=== PATIENT | male | born 1960 | race Caucasian/White ===

== ENCOUNTER 2016-09-05 05:58 | Day surgery (SDC) | payer MEDICARE ==
[~2016-09-05 05:58] MED LIST: DIAZEPAM 5 MG TABLET PO PRN; OXYCODONE-ACETAMINOPHEN 5-325 MG TABLET PO PRN
[2016-09-05] MEDS ORDERED: LIDOCAINE 0.5% INJ-PF (5 MG/ML) 50 ML SDV ONE (06:46)
[2016-09-05] MEDS ORDERED: MIDAZOLAM 2 MG/2 ML INJ ONE (06:46)
[2016-09-05] MEDS ORDERED: FENTANYL CITRATE INJ/PF 100 MCG/2 ML AMPUL ONE (06:47)
[2016-09-05] MEDS ORDERED: HEPARIN SOD (PORCINE) 5,000 UNIT/ML 1 ML SYRINGE ONE (06:47)
[2016-09-05 06:51] LABS: ABSOLUTE BASOPHILS # (AUTO) 0.2 10^3/uL (0.0-0.2); ABSOLUTE EOSINOPHILS # (AUTO) 0.4 10^3/uL (0.0-0.6); ABSOLUTE LYMPHOCYTES (AUTO) 1.6 10^3/uL (0.5-4.7); ABSOLUTE MONOCYTES (AUTO) 1.2 10^3/uL (0.1-1.4); ABSOLUTE NEUT (AUTO) 9.7 10^3/uL (1.7-8.2); BASOPHILS % (AUTO) 1.3 % (0-2); EOSINOPHILS % (AUTO) 3.2 % (0-6); HEMOGLOBIN 12.2 g/dL (13.5-17.0); HGB HCT DIFFERENCE 2.6; LYMPHOCYTES % (AUTO) 12.3 % (13-45); MEAN CORPUSCULAR HEMOGLOBIN 31.3 pg (27.0-33.4); MEAN CORPUSCULAR HGB CONC 35.8 g/dL (32.0-36.0); MEAN CORPUSCULAR VOLUME 88 fl (80-97); MONOCYTES % (AUTO) 8.9 % (3-13); RED BLOOD COUNT 3.89 10^6/uL (4.35-5.55); RED CELL DISTRIBUTION WIDTH 13.3 % (11.5-14.0); SEGMENTED NEUTROPHILS % (AUTO) 74.3 % (42-78); WHITE BLOOD COUNT 13.1 10^3/uL (4.0-10.5)
[2016-09-05 07:13] LABS: BLOOD UREA NITROGEN 48 mg/dL (7-20); CALCIUM 9.3 mg/dL (8.4-10.2); CHLORIDE 98 mmol/L (98-107); CREATININE RESULT 7.73 mg/dL (0.52-1.25); GLUCOSE 97 mg/dL (75-110); POTASSIUM 5.3 mmol/L (3.6-5.0)
[2016-09-05 07:22] LABS: ANION GAP 18 (5-19); CARBON DIOXIDE 28 mmol/L (22-30); SODIUM 144.3 mmol/L (137-145)
--- NOTE | 2016-09-05 08:59 | PDOC H&P ---
General Chief Complaint: The patient presents for improvement on a right arm transposed basilic vein fistula. Access flows of diminished below 500 mils per minute. - Current Medications/Allergies Home Medications: Aspirin [Ecotrin] 81 mg PO DAILY 06/30/14 Clopidogrel Bisulfate [Plavix 75 mg Tablet] 75 mg PO DAILY 06/30/14 Lisinopril 10 mg PO DAILY 06/30/14 Metoprolol Tartrate [Lopressor 25 mg Tablet] 100 mg PO BID 06/30/14 Simvastatin 20 mg PO DAILY 06/30/14 Pantoprazole Sodium 40 mg PO DAILY 03/07/16 Ubidecarenone [Coq-10] 100 mg PO DAILY 03/07/16 Allergies/Adverse Reactions: No Known Allergies Allergy (Verified 03/07/16 07:57) Past Medical History Cardiac Medical History: Reports: Coronary Artery Disease, Myocardial Infarction - 2013, Hypertension - on meds Pulmonary Medical History: Denies: Asthma, Bronchitis, Chronic Obstructive Pulmonary Disease (COPD), Pneumonia Neurological Medical History: Denies: Seizures Renal/ Medical History: Reports: End Stage Renal Disease Musculoskeltal Medical History: Denies: Arthritis Hematology: Denies: Anemia Family History Parental Family History Reviewed: No Children Family History Reviewed: No Sibling(s) Family History Reviewed.: No Social History Smoking Status: Unknown if Ever Smoked Frequency of Alcohol Use: None Hx Recreational Drug Use: No Hx Prescription Drug Abuse: No Physical Exam Vital Signs: Temp Pulse Resp BP Pulse Ox 98.2 F 80 18 136/107 H 98 09/05/16 05:45 09/05/16 05:45 09/05/16 05:45 09/05/16 05:45 09/05/16 05:45 Intake & Output 09/04/16 09/05/16 09/06/16 06:59 06:59 06:59 Weight 85 kg Additional comments: Constitutional: A well-developed well-nourished gentleman. No acute distress. Eyes: Mucous membranes pink and moist, sclerae anicteric, pupils react normally. Respiratory: No shortness of breath or wheezing. Breath sounds are normal and equal. Cardiac: Heart sounds normal, no murmurs, no increased JVP. Peripheral edema. Extremities: Upper extremities shows normal range of movement and pulses. The right arm has a transposed basilic to brachial fistula. Bruit normal. Soft to palpation. Psychiatric: judgment, memory, insight seem normal. Mood is normal, appropriate and pleasant. Impression/Plan Impression: #1 malfunctioning arteriovenous fistula, right basilic to brachial. #2 end-stage renal disease on hemodialysis. #3 prior myocardial infarction. #4 history of stroke. #5 hypertension Plan: The fistula angiogram and possible angioplasty was recommended. The goal is to improve and prolonged use of fistula. The risks, benefits, expected outcome, and alternatives are familiar to the patient.
--- NOTE | 2016-09-05 09:01 | PDOC DISCHARGE SUMMARY ---
Discharge Summary (SDC) - Discharge Final Diagnosis: #1 malfunctioning arteriovenous fistula, right basilic to brachial. #2 end-stage renal disease on hemodialysis. #3 prior myocardial infarction. #4 history of stroke. #5 hypertension Date of Surgery: 09/05/16 Discharge Date: 09/05/16 Condition: Good Forms: Sedation D/C Instructions, Discharge POC-Surgical Service Treatment or Instructions: #1 discharge patient home after achieving ASU criteria. #2 continue medications per medication reconciliation sheet. #3 follow-up in office by appointment in about 1 month, call for appointment. #4 dressing to be left on dialysis. #5 continue scheduled hemodialysis. #6 may shower starting in 48 hours. Important to keep dressings clean and dry Referrals: JABARI JAMES MD [ACTIVE STAFF] - (Follow up as schedule ) Discharge Diet: Other (Comments) - Renal Respiratory Treatments at Home: Deep Breathing/Coughing Discharge Activity: Activity As Tolerated Home Care Assistance: None Needed Report the Following to Your Physician Immediately: Shortness of Breath, Nausea , Fever over 101 Degrees, Unusual Bleeding
--- NOTE | 2016-09-05 09:10 | Operative Report ---
Operative Report DATE OF SURGERY: 09/05/16 PREOPERATIVE DIAGNOSIS: #1 malfunctioning arteriovenous fistula, right basilic to brachial. #2 end-stage renal disease on hemodialysis. #3 prior myocardial infarction. #4 history of stroke. #5 hypertension POSTOPERATIVE DIAGNOSIS: #1 malfunctioning arteriovenous fistula, right basilic to brachial. #2 end-stage renal disease on hemodialysis. #3 prior myocardial infarction. #4 history of stroke. #5 hypertension OPERATION: #1 needle access into fistula under ultrasound guidance real-time. # 2 angioplasty arteriovenous. #3 angiogram and interpretation. SURGEON: JABARI DODD FREIGHT RATE SPECIALIST: none ANESTHESIA: Moderate Sedation TISSUE REMOVED OR ALTERED: Not applicable. COMPLICATIONS: None ESTIMATED BLOOD LOSS: 2 mL. INTRAOPERATIVE FINDINGS: Of a well-founded right arm transposed basilic vein fistula. Somewhat soft to palpation which is concordant with the referral finding of diminished access flows. After angioplasty much improved fistula to palpation. Angiographic findings of a long segment of stenoses about 6 cm long and representing 90% of stenosis compared to the adjacent lumen. Dilated initial fistula after then anastomosis and another dilated segment in the stenotic area. These suggest the effect of the cephalad stenoses. Unable to access the artery even after diligent efforts using a torque device,kumpe catheter and various maneuvers. The hyper pulsatile area immediately after the anastomosis suggestive the inflow itself is satisfactory. After angioplasty the stenosis was mostly resolved with a residual 5-10% stenosis. One very short area of stenosis is perhaps a residual 20%. This was very resistant to angioplasty. PROCEDURE: PROCEDURE: After verifying the procedure and having obtained informed consent, the patient's right arm and forearm were prepared with Chlorhexidine and draped out with sterile linen. Local anesthesia infiltrated. Percutaneous access into the fistula ,[retrograde], obtained about [20 cm] from the arteriovenous anastomosis using a micro puncture needle followed by micro puncture wire and then a micro puncture catheter. This was done on ultrasound guidance using real-time access into the vein. Ultrasound was also used to size the vein up to 13 mm in the body. Angiogram demonstrated the aforementioned findings. Angioplasty was elected. A 0.035 [place] wire was inserted, a 6 Citizen [place] short introducer was placed,a Kumpe catheter was now used to gently traverse the area of stenosis and initial angiogram done. And this was followed by a [4] angioplasty balloon . Angioplasty was now done over the stenotic segments. This was done using hand injection with the 3 most syringe estimated up to 16 amita sustained for 2minutes. The short area of residual stenosis was noted as well as some improvement. A 6 mm angioplasty balloon was now substituted and again angioplasty done on the hand injection. An insufflator was now attached to the balloon and targeted insufflation done up to 16 amita for a minute. This resulted in almost elimination of the very tight area of stenosis. Angiogram demonstrated successful outcome. Completion angiogram demonstrated [satisfactory result]. The instrumentation was now withdrawn over hand-held pressure for 10 minutes. Dressings applied, procedure concluded. Exposure time: 3.5 minutes Radiation: 5 sarah per centimeter squared Contrast: 25 mL of Isovue-M 300 low osmolality. DICTATING PHYSICIAN: JABARI JAMES M.D. cc: JABARI JAMES M.D. ([id number]) >>
[2016-09-05 10:58] VITALS: BP 132/81
== END 2016-09-05 10:45 | disposition home or self-care (01) ==
LOC: CCL 05:58
PROVIDERS: ATTEND Surgery
PROC: 05793DZ Dilation of Right Brachial Vein with Intraluminal Device, Percutaneous Approach (ICD-10-PCS; principal; 2016-09-05)
DX: T82.858A Stenosis of other vascular prosthetic devices, implants and grafts, initial encounter (principal); Y83.2 Surgical operation with anastomosis, bypass or graft as the cause of abnormal reaction of the patient, or of later complication, without mention of misadventure at the time of the procedure; I12.0 Hypertensive chronic kidney disease with stage 5 chronic kidney disease or end stage renal disease; N18.6 End stage renal disease; I25.10 Atherosclerotic heart disease of native coronary artery without angina pectoris; Z86.73 Personal history of transient ischemic attack (TIA), and cerebral infarction without residual deficits; I25.2 Old myocardial infarction; Z79.82 Long term (current) use of aspirin; Z79.899 Other long term (current) drug therapy
CPT/HCPCS: 36415; 85025; 80048; 36902; 76937; C1725; Q9967; J1644 ×2; A9270 ×2; J3490; J2250; J3010

== ENCOUNTER 2016-11-28 10:51 | Day surgery (SDC) | payer MEDICARE ==
[2016-11-27 12:46] LABS: HEMOGLOBIN 11.8 g/dL (13.5-17.0); HGB HCT DIFFERENCE 1.4; MEAN CORPUSCULAR HEMOGLOBIN 30.8 pg (27.0-33.4); MEAN CORPUSCULAR HGB CONC 34.6 g/dL (32.0-36.0); MEAN CORPUSCULAR VOLUME 89 fl (80-97); RED BLOOD COUNT 3.83 10^6/uL (4.35-5.55); RED CELL DISTRIBUTION WIDTH 13.2 % (11.5-14.0); WHITE BLOOD COUNT 10.9 10^3/uL (4.0-10.5)
[2016-11-27 13:23] LABS: ANION GAP 15 (5-19); BLOOD UREA NITROGEN 17 mg/dL (7-20); CALCIUM 9.1 mg/dL (8.4-10.2); CARBON DIOXIDE 30 mmol/L (22-30); CHLORIDE 96 mmol/L (98-107); CREATININE RESULT 4.21 mg/dL (0.52-1.25); GLUCOSE 82 mg/dL (75-110); POTASSIUM 3.8 mmol/L (3.6-5.0); SODIUM 140.6 mmol/L (137-145)
--- NOTE | 2016-11-28 12:42 | PDOC H&P ---
General Chief Complaint: This patient was referred across from hemodialysis because of inadequate flow. He is here for angiogram and possible angioplasty. - Current Medications/Allergies Home Medications: Aspirin [Ecotrin] 81 mg PO DAILY 06/30/14 Clopidogrel Bisulfate [Plavix 75 mg Tablet] 75 mg PO DAILY 06/30/14 Lisinopril 10 mg PO DAILY 06/30/14 Metoprolol Tartrate [Lopressor 25 mg Tablet] 100 mg PO BID 06/30/14 Simvastatin 20 mg PO DAILY 06/30/14 Pantoprazole Sodium 40 mg PO DAILY 03/07/16 Ubidecarenone [Coq-10] 100 mg PO DAILY 03/07/16 Allergies/Adverse Reactions: No Known Allergies Allergy (Verified 03/07/16 07:57) Past Medical History Cardiac Medical History: Reports: Coronary Artery Disease, Myocardial Infarction - 2013, Hypertension - on meds Pulmonary Medical History: Denies: Asthma, Bronchitis, Chronic Obstructive Pulmonary Disease (COPD), Pneumonia Neurological Medical History: Denies: Seizures Renal/ Medical History: Reports: End Stage Renal Disease Musculoskeltal Medical History: Denies: Arthritis Hematology: Denies: Anemia Family History Parental Family History Reviewed: No Children Family History Reviewed: No Sibling(s) Family History Reviewed.: No Social History Smoking Status: Never Smoker Frequency of Alcohol Use: None Hx Recreational Drug Use: No Hx Prescription Drug Abuse: No Physical Exam Vital Signs: Temp Pulse Resp BP Pulse Ox 97.5 F 76 20 138/78 H 100 11/28/16 11:53 11/28/16 11:53 11/28/16 11:53 11/28/16 11:53 11/28/16 11:53 Intake & Output 11/27/16 11/28/16 11/29/16 06:59 06:59 06:59 Weight 81.647 kg 85.1 kg Additional comments: Constitutional: Well-developed well-nourished gentleman. No apparent acute distress. Eyes: Mucous membranes pink and moist, pupils equal and reactive to light. Conjunctiva normal. Cornea normal. ENT: Hearing grossly normal. External pinna normal to inspection. Teeth intact. Tongue normal to inspection. Cardiac: Heart sounds 1 and 2 normal, no murmurs. Respiratory breath sounds are present bilaterally, normal. Normal respiratory effort. Skin: Normal to inspection. No ulcers, normal turgor. Psychiatric: Judgment, memory, insight seem normal. Mood is pleasant and appropriate. Extremities: Upper extremities show normal range of movement. Pulses present noted to the radial arteries. Capillary refill normal. No cyanosis noted. No muscle wasting noted. Right arm transposed basilic vein fistula is somewhat softer than normal, bruit normal. Lo Impression/Plan Impression: #1 malfunctioning AV fistula, right transposed basilic vein. 2. End-stage renal disease on hemodialysis. 3. Coronary artery disease. 4. Hypertension. Plan: In this patient with a malfunctioning AV fistula, continued adequate function is necessary. Angiogram and angioplasty are recommended. The patient accepts these recommendations. He understands the risks, benefits, expected outcome and alternatives. He wishes to proceed.
[2016-11-28] MEDS ORDERED: MIDAZOLAM 2 MG/2 ML INJ ONE (12:43)
[2016-11-28] MEDS ORDERED: HEPARIN SOD (PORCINE) 5,000 UNIT/ML 1 ML SYRINGE ONE (12:43)
[2016-11-28] MEDS ORDERED: FENTANYL CITRATE INJ/PF 100 MCG/2 ML AMPUL ONE (12:43)
[2016-11-28] MEDS ORDERED: LIDOCAINE 0.5% INJ-PF (5 MG/ML) 50 ML SDV ONE (12:43)
[2016-11-28] MEDS ORDERED: OXYCODONE-ACETAMINOPHEN 5-325 MG TABLET ONE (12:50)
[2016-11-28] MEDS ORDERED: DIAZEPAM 5 MG TABLET ONE (12:50)
--- NOTE | 2016-11-28 13:43 | PDOC DISCHARGE SUMMARY ---
Discharge Summary (SDC) - Discharge Final Diagnosis: #1 malfunctioning AV fistula, right transposed basilic vein. 2. End-stage renal disease on hemodialysis. 3. Coronary artery disease. 4. Hypertension. Date of Surgery: 11/28/16 Discharge Date: 11/28/16 Condition: Fair Treatment or Instructions: Discharge home [after recovery per ASU criteria]. Diet , [renal],as tolerated, when fully awake advance as tolerated. Activities within moderation encouraged. Follow up in my office by appointment in about [1 month]. Call for appointment. Leave wounds [covered], [keep clean and dry, until hemodialysis]. May shower [in 48 hrs], [try to keep operated area as dry as possible]. Discharge Diet: Other (Comments) - Renal Respiratory Treatments at Home: Deep Breathing/Coughing Discharge Activity: Activity As Tolerated Report the Following to Your Physician Immediately: Shortness of Breath, Unusual Bleeding
--- NOTE | 2016-11-28 13:59 | Operative Report ---
Operative Report DATE OF SURGERY: 11/28/16 PREOPERATIVE DIAGNOSIS: #1 malfunctioning AV fistula, right transposed basilic vein. 2. End-stage renal disease on hemodialysis. 3. Coronary artery disease. 4. Hypertension. POSTOPERATIVE DIAGNOSIS: #1 malfunctioning AV fistula, right transposed basilic vein. 2. End-stage renal disease on hemodialysis. Post angioplasty. 3. Coronary artery disease. 4. Hypertension. OPERATION: 1. Needle introduction of the fistula. 2. Angioplasty. 3. Angiogram and interpretation. SURGEON: JABARI DODD TECHNOLOGY SUPPORT ANALYST: None ANESTHESIA: Moderate Sedation TISSUE REMOVED OR ALTERED: Not applicable. COMPLICATIONS: None ESTIMATED BLOOD LOSS: 2 mL. INTRAOPERATIVE FINDINGS: Of a well founded right arm transposed basilic vein fistula. There was a short segment of stenosis about 2 mm in the longest section of about 4 cm. These were about 2 cm away from the arteriovenous anastomosis. 90% stenosis compared to the adjacent lumen. Much improved with a residual 5-10% stenosis. It may be worthwhile intervening earlier rather than later and going up to 6 mm balloon. . The fistula was quite soft initially and became appropriately for her after angioplasty initiating improved inflow. PROCEDURE: PROCEDURE: After verifying the procedure and having obtained informed consent, the patient's right arm and forearm were prepared with Chlorhexidine and draped out with sterile linen. Local anesthesia infiltrated. Percutaneous access into the fistula ,[retrograde], obtained about [20 cm] from the arteriovenous anastomosis using a micro puncture needle followed by micro puncture wire and then a micro puncture catheter. Angiogram demonstrated the aforementioned findings. Angioplasty was elected. A 0.035 [place] wire was inserted, and over this, a 6 [place] short introducer was placed, this was followed by a 5 mm angioplasty balloon . Angioplasty was now done over the perianastomotic segment. As noted in findings. This was done very carefully and in the up to 10 amita sustained for 1 minute, using a 3 mils syringe.. This was repeated. Completion angiogram demonstrated [satisfactory result]. The instrumentation was now withdrawn over hand injection. Dressings applied, procedure concluded. Exposure time: 2.1 minutes Radiation: 1.9 mcg per centimeter squared Contrast: 25 mL of Isovue-M 300 low osmolality. DICTATING PHYSICIAN: JABARI JAMES M.D. cc: JABARI JAMES M.D. ([id number]) >>
[2016-11-28 14:55] VITALS: BP 126/68
--- NOTE | 2016-11-28 16:22 | RADIOLOGY REPORT (SQ) ---
EXAM DESCRIPTION: FISTULAGRAM W/PLASTY COMPLETED DATE/TIME: 11/28/2016 2:20 pm REASON FOR STUDY: T82.858A T82.858A STENOSIS OF OTHER VASCULAR PROSTH DEV/GRFT, INIT N18.2 CHRONIC KIDNEY DISEASE, STAGE 2 (MILD) COMPARISON: 09/05/2016 FLUOROSCOPY TIME: 2.1 minutes Multiple cine fluoro images saved to PACS. TECHNIQUE: Intra-operative images acquired during surgical procedure to evaluate progress. NUMBER OF IMAGES: Cine fluoroscopic images. LIMITATIONS: None. FINDINGS: Intra procedural imaging and fluoro during left upper extremity dialysis access evaluation and plasty by Dr. Singh IMPRESSION: Intra procedural imaging and fluoro COMMENT: Quality ID [id number]: Final reports for procedures using fluoroscopy that document radiation exp osure indices, or exposure time and number of fluorographic images (if radiation exposure indices are not available) Please consult full operative report of the attending physician for description of the procedure. TECHNICAL DOCUMENTATION: JOB ID: [id number] [employer]- All Rights Reserved
== END 2016-11-28 14:35 | disposition home or self-care (01) ==
LOC: SC 10:51
PROVIDERS: ATTEND Surgery
PROC: 057B3DZ Dilation of Right Basilic Vein with Intraluminal Device, Percutaneous Approach (ICD-10-PCS; principal; 2016-11-28)
DX: T82.858A Stenosis of other vascular prosthetic devices, implants and grafts, initial encounter (principal); Y83.2 Surgical operation with anastomosis, bypass or graft as the cause of abnormal reaction of the patient, or of later complication, without mention of misadventure at the time of the procedure; I12.0 Hypertensive chronic kidney disease with stage 5 chronic kidney disease or end stage renal disease; N18.6 End stage renal disease; Z99.2 Dependence on renal dialysis; Z79.899 Other long term (current) drug therapy; Z79.82 Long term (current) use of aspirin; I25.2 Old myocardial infarction; Z86.73 Personal history of transient ischemic attack (TIA), and cerebral infarction without residual deficits
CPT/HCPCS: 36415; 85027; 80048; 36902; C1725; C1769; J2250; J1644 ×2; A9270 ×2; J3010; J3490

== ENCOUNTER → 2017-02-27 | Outpatient (CLI) | payer MEDICAID, MEDICARE ==
--- NOTE | 2017-02-27 16:13 | XCELERA REPORT ---
[address] [address] Lower Extremity Venous Evaluation Name: IKE AZAR Age: 56 yrs Gender: Male : 1960 Patient Status: Outpatient Patient Location: Study Date: 02/27/2017 02:45 PM Procedure: Color flow and duplex imaging bilaterally of the veins of the lower extremities as well as the Common Femoral veins. Reason For Study: PAIN Ordering Physician: ALTAGRACIA HERNANDEZ Performed By: Adalberto Bob Right Sided Venous Evaluation Normal vessel filling wall to wall, compression and augmentation as well as Colour flow down to the infrageniculate veins. Left Sided Venous Evaluation Normal vessel filling wall to wall, compression and augmentation as well as Colour flow down to the infrageniculate veins. Interpretation Summary No duplex evidence of DVT or obstruction in the bilateral lower extremities. : ALTAGRACIA HERNANDEZ > Brendan Singh
--- NOTE | 2017-02-27 16:28 | XCELERA REPORT ---
[address] [address] Lower Extremity Arterial Evaluation Name: IKE AZAR Age: 56 yrs Gender: Male : 1960 Patient Status: Outpatient Patient Location: Study Date: 02/27/2017 02:22 PM Procedure: A color flow and duplex scan of the lower extremity arteries was performed bilaterally with velocity and waveform anaylsis. Ankle brachial indicies performed. Reason For Study: PAIN Ordering Physician: ALTAGRACIA HERNANDEZ Performed By: Adalberto Bob Measurements and Calculations Right Left ELECTROPHYSIOLOGY TECHNOLOGIST PSV 122.6 127.3 cm/sec Prox PFA PSV -106.9 -99.0 cm/sec Dist SFA PSV -123.8 -103.1 cm/sec Dist Pop A PSV 74.6 84.4 cm/sec Prox MELISSA PSV 17.7 cm/sec Dist MELISSA PSV 28.2 66.2 cm/sec Dist TEACHING FELLOW PSV 65.9 86.0 cm/sec David Pedis PSV 15.3 32.9 cm/sec Right Side Arterial Evaluation Normal velocity and triphasic waveforms noted from the Common Femoral artery to the Posterior Tibial artery. Occluded Anterior Tibial artery with monophasic reconstitution. Ankle Brachial index was not obtainable due to non compressibility. Left Side Arterial Evaluation Normal velocity and triphasic waveforms noted from the Common Femoral artery to the Posterior Tibial artery. Biphasic in the Dorsalis Pedis artery. Ankle Brachial index was not obtainable due to non compressibility. Interpretation Summary Mild hemodynamically significant lesions in the bilateral lower extremities, on duplex imaging, at rest. : ALTAGRACIA HERNANDEZ > Brendan Singh
== END ==
LOC: SP 13:56
PROVIDERS: ATTEND Student in an Organized Health Care Education/Training Program
DX: I73.9 Peripheral vascular disease, unspecified (principal); M79.604 Pain in right leg; M79.605 Pain in left leg; N18.6 End stage renal disease; Z86.73 Personal history of transient ischemic attack (TIA), and cerebral infarction without residual deficits
CPT/HCPCS: 93925; 93970

== ENCOUNTER 2017-03-27 10:09 | Day surgery (SDC) | payer MEDICARE, MEDICAID ==
[2017-03-27 10:58] LABS: ABSOLUTE BASOPHILS # (AUTO) 0.1 10^3/uL (0.0-0.2); ABSOLUTE EOSINOPHILS # (AUTO) 0.3 10^3/uL (0.0-0.6); ABSOLUTE LYMPHOCYTES (AUTO) 1.1 10^3/uL (0.5-4.7); ABSOLUTE MONOCYTES (AUTO) 0.8 10^3/uL (0.1-1.4); ABSOLUTE NEUT (AUTO) 6.9 10^3/uL (1.7-8.2); BASOPHILS % (AUTO) 1.3 % (0-2); EOSINOPHILS % (AUTO) 2.9 % (0-6); HEMATOCRIT 35.7 % (37.9-51.0); HEMOGLOBIN 12.4 g/dL (13.5-17.0); HGB HCT DIFFERENCE 1.5; LYMPHOCYTES % (AUTO) 11.6 % (13-45); MEAN CORPUSCULAR HEMOGLOBIN 30.6 pg (27.0-33.4); MEAN CORPUSCULAR HGB CONC 34.7 g/dL (32.0-36.0); MEAN CORPUSCULAR VOLUME 88 fl (80-97); MONOCYTES % (AUTO) 9.1 % (3-13); RED BLOOD COUNT 4.04 10^6/uL (4.35-5.55); RED CELL DISTRIBUTION WIDTH 13.7 % (11.5-14.0); SEGMENTED NEUTROPHILS % (AUTO) 75.1 % (42-78); WHITE BLOOD COUNT 9.1 10^3/uL (4.0-10.5)
[2017-03-27] MEDS ORDERED: FENTANYL CITRATE INJ/PF 100 MCG/2 ML AMPUL ONE (11:30)
[2017-03-27] MEDS ORDERED: HEPARIN SOD (PORCINE) 5,000 UNIT/ML 1 ML SYRINGE ONE ×2 (11:30→11:36)
[2017-03-27] MEDS ORDERED: MIDAZOLAM 2 MG/2 ML INJ ONE (11:30)
[2017-03-27] MEDS ORDERED: LIDOCAINE 0.5% INJ-PF (5 MG/ML) 50 ML SDV ONE (11:36)
[2017-03-27 11:42] LABS: ANION GAP 18 (5-19); BLOOD UREA NITROGEN 53 mg/dL (7-20); CALCIUM 8.9 mg/dL (8.4-10.2); CARBON DIOXIDE 24 mmol/L (22-30); CHLORIDE 105 mmol/L (98-107); CREATININE RESULT 9.77 mg/dL (0.52-1.25); GLUCOSE 87 mg/dL (75-110); POTASSIUM 5.2 mmol/L (3.6-5.0); SODIUM 146.6 mmol/L (137-145)
--- NOTE | 2017-03-27 13:44 | PDOC DISCHARGE SUMMARY ---
Discharge Summary (SDC) - Discharge Final Diagnosis: #1 right arm AV fistula transposed basilic, malfunction. 2. End-stage renal disease on hemodialysis. 3. Coronary artery disease. 4. Hypertension. Date of Surgery: 03/27/17 Discharge Date: 03/27/17 Condition: Good Forms: Sedation D/C Instructions, Discharge POC-Surgical Service Treatment or Instructions: Discharge home [after recovery per ASU criteria]. Diet , [renal],as tolerated, when fully awake advance as tolerated. Activities within moderation encouraged. Follow up in my office by appointment in about [1 month]. Call for appointment. Leave wounds [covered], [keep clean and dry, until hemodialysis. Hold of on school/work [until evaluation in office]. May shower [in 48 hrs], [try to keep operated area as dry as possible]. Referrals: JABARI JAMES MD [ACTIVE STAFF] - 04/12/17 10:15 am Discharge Diet: Other (Comments) - Renal Respiratory Treatments at Home: Deep Breathing/Coughing Discharge Activity: Activity As Tolerated, No Lifting/Push/Pulling Home Care Assistance: None Needed Report the Following to Your Physician Immediately: Shortness of Breath, Nausea , Vomiting, Increase in Pain, Fever over 101 Degrees, Unusual Bleeding, Redness , Swelling, Warmth
--- NOTE | 2017-03-27 13:52 | Operative Report ---
Operative Report DATE OF SURGERY: 03/27/17 PREOPERATIVE DIAGNOSIS: #1 right arm AV fistula transposed basilic, malfunction. 2. End-stage renal disease on hemodialysis. 3. Coronary artery disease. 4. Hypertension. POSTOPERATIVE DIAGNOSIS: #1 right arm AV fistula transposed basilic, malfunction. Post angioplasty. 2. End-stage renal disease on hemodialysis. 3. Coronary artery disease. 4. Hypertension. OPERATION: 1. Ultrasound evaluation and real-time ultrasound access into right arm AV fistula. 2. Angioplasty. 3. Angioplasty with drug eluting balloon. 4. Angiogram and interpretation. SURGEON: JABARI DODD CONSTRUCTION EQUIPMENT OVERHAULER: None ANESTHESIA: Moderate Sedation TISSUE REMOVED OR ALTERED: Not applicable COMPLICATIONS: None ESTIMATED BLOOD LOSS: 5 mL. INTRAOPERATIVE FINDINGS: Well established right arm transposed basilic vein fistula. Very faint bruit and only at the arterial end. Hyper pulsatile segment in the first 2-3 cm distal to that the fistula barely appreciable. Ultrasound of considerable benefit in getting safe access into the fistula. The culprit lesion is from about 3-9 cm with one sharp area at about 4 cm of about 90% stenosis with resolution and possibly about 5-10% residual stenosis. Using a 6 mm angioplasty balloon. Almost no flow through the fistula which was almost entirely obstructed by the Kumpe catheter initially. After angioplasty excellent flow through the fistula. Copy documentation done. The patient given a copy of the salient pictures as well as information about the drug- eluting balloon. The hope is to hold off on this recurrent area of stenosis for 6 more months. PROCEDURE: PROCEDURE: After verifying the procedure and having obtained informed consent, the patient's right arm was prepared with Chlorhexidine and draped out with sterile linen. Local anesthesia infiltrated. Percutaneous access into the fistula ,[ antegrade], obtained about [20 cm] from the arteriovenous anastomosis using a micro puncture needle. This was done on ultrasound guidance with the probe longitudinally, directly over the cephalic fistula. This was of great efficacy and getting C's access into the fistula which is relatively soft at this point. Followed by micro puncture wire and then a micro puncture catheter. 6 [place] introducer was now placed and then a Kumpe catheter which was manipulated down to the area of the brachial artery. Angiogram was done with the findings as above. Based on this a 6 mm angioplasty balloon, [place] was now placed at the area of dilatation and inflation done using hand injection, 3 mils syringe. This was serially done until the area of stenosis was completely covered. It was inflated up to 2 minutes each. Angiogram demonstrated satisfactory dilatation and therefore 6 mm, 60 mm long, drug-eluting balloon was placed over the the distal portion of the stenosis. It was inflated up to 11 amita and sustained for 3 minutes. This was 60 mm long. A second 6 mm diameter, 40 mm drug-eluting balloon was now placed on the cephalad area of stenosis and inflation done up to 11 amita using an insufflator. The balloon was now let down and a completion angiogram done and the instrumentation removed over hand-held pressure for 10 minutes. The instrumentation was now withdrawn over and pressure for 10 minutes. Dressings applied, procedure concluded. Exposure time: 3.9 minutes Radiation: 8.53 mcg/cm Contrast: 25 mL of Isovue-300, low osmolality DICTATING PHYSICIAN: JABARI JAMES M.D. cc: JABARI JAMES M.D. ([id number]) >>
[2017-03-27 14:21] VITALS: BP 119/75
== END 2017-03-27 14:20 | disposition home or self-care (01) ==
LOC: CCL 10:09
PROVIDERS: ATTEND Surgery
PROC: 05783DZ Dilation of Left Axillary Vein with Intraluminal Device, Percutaneous Approach (ICD-10-PCS; principal; 2017-03-27)
DX: T82.858A Stenosis of other vascular prosthetic devices, implants and grafts, initial encounter (principal); Y83.2 Surgical operation with anastomosis, bypass or graft as the cause of abnormal reaction of the patient, or of later complication, without mention of misadventure at the time of the procedure; I12.0 Hypertensive chronic kidney disease with stage 5 chronic kidney disease or end stage renal disease; N18.6 End stage renal disease; Z99.2 Dependence on renal dialysis; I25.10 Atherosclerotic heart disease of native coronary artery without angina pectoris; Z79.899 Other long term (current) drug therapy; Z79.82 Long term (current) use of aspirin; I25.2 Old myocardial infarction
CPT/HCPCS: 36415; 85025; 80048; 36902; C1752; C1887; C1894; C1725; C1769; J2250; J1644 ×2; J3010; J3490; C2623; Q9967

== ENCOUNTER → 2017-08-09 | Outpatient (CLI) | payer MEDICAID, MEDICARE ==
--- NOTE | 2017-08-09 17:33 | RADIOLOGY REPORT (SQ) ---
EXAM DESCRIPTION: U/S LTD DUPLEX ART/VIDAL FLOW COMPLETED DATE/TIME: 08/09/2017 5:15 pm REASON FOR STUDY: HYPERTENSIVE CHRONIC KIDNEY DISEASE WITH STAGE 5 CHRONIC KIDNEY DISEASE I12.0 HYP CHR KIDNEY DISEASE W STAGE 5 CHR KIDNEY DISEASE OR COMPARISON: None. TECHNIQUE: Realtime and static grayscale images acquired. Selected color Doppler, velocities and spe ctral images recorded. LIMITATIONS: Unable to obtain renal Doppler on the left side due to anatomy. FINDINGS: RIGHT KIDNEY: RENAL ARTERY VELOCITIES: 1.1 cm/sec. Segmental artery velocity 0.98 cm/sec. RENAL VEIN: Color doppler flow present, patent. VELOCITY RATIO: 2.33. Normal waveforms. KIDNEY: 8.9 cm. Increased cortical echogenicity. Cortical cysts. LEFT KIDNEY: RENAL ARTERY VELOCITIES: Unable to obtain. KIDNEY: 10.1 increased cortical echogenicity. Cortical cysts. OTHER: No other significant finding. IMPRESSION: UNABLE TO ADEQUATELY MEASURE THE RENAL VELOCITIES ON THE LEFT SIDE. NO DOPPLER EVIDENCE OF RENAL ARTERY STENOSIS ON THE RIGHT SIDE. ECHOGENIC KIDNEYS WITH CORTICAL CYSTS. NO HYDRONEPHROS IS. COMMENT: NORMAL RENAL ARTERY/AORTA VELOCITY RATIO IS LESS THAN OR EQUAL TO 3.5. TECHNICAL DOCUMENTATION: JOB ID: [id number] [employer]- All Rights Reserved Reading location - IP/workstation name: [email or web address]
== END ==
LOC: RAD 16:28
PROVIDERS: ATTEND Internal Medicine Nephrology
DX: I12.9 Hypertensive chronic kidney disease with stage 1 through stage 4 chronic kidney disease, or unspecified chronic kidney disease (principal); N18.9 Chronic kidney disease, unspecified; N28.1 Cyst of kidney, acquired
CPT/HCPCS: 93976

== ENCOUNTER 2017-12-25 11:29 | Emergency (ER) | payer MEDICARE, MEDICAID ==
[2017-12-25] MEDS ORDERED: ALBUTEROL SULFATE 0.083% NEB 2.5 MG/3 ML AMPUL NEB ONE (11:53)
[2017-12-25] MEDS ORDERED: CALCIUM GLUCONATE 1000 MG/10 ML INJ IV ONE (11:53)
[2017-12-25] MEDS ORDERED: SODIUM POLYSTYRENE SULFONATE 15 GM/60 ML PO ONE ×2 (11:53→21:30)
--- NOTE | 2017-12-25 12:13 | ER Document Report ---
ED General - General Mode of Arrival: Ambulatory Information source: Patient TRAVEL OUTSIDE OF THE [place] IN LAST 30 DAYS: No <PATRIA BAEZA - Last Filed: 12/25/17 12:31> <BERTA MEJIA - Last Filed: 12/25/17 18:55> - General Stated Complaint: FOLLOW UP FROM ASU Time Seen by Provider: 12/25/17 11:53 Notes: 57-year-old male who presents to the emergency department today with complaints of an elevated potassium (6.7) during outpatient labs. Patient was scheduled to have his right forearm AV fistula cleaned out by vascular surgery today and in labs was found to have the potassium listed above. Patient states he is asymptomatic. Patient does admit to eating bananas. (PATRIA BAEZA) - Related Data Allergies/Adverse Reactions: No Known Allergies Allergy (Verified 03/07/16 07:57) Past Medical History - General Information source: Patient - Social History Smoking Status: Never Smoker Cigarette use (# per day): No Frequency of alcohol use: None Drug Abuse: None Lives with: Family Family History: Reviewed & Not Pertinent - Past Medical History Cardiac Medical History: Reports: Hx Coronary Artery Disease, Hx Heart Attack - 2013, Hx Hypertension - on meds Neurological Medical History: Reports: Hx Cerebrovascular Accident - 2003, NO RESIDUAL Renal/ Medical History: Reports: Hx End Stage Renal Disease Past Surgical History: Reports: Hx Coronary Artery Bypass Graft - x4 2013 - Immunizations Hx Diphtheria, Pertussis, Tetanus Vaccination: Yes Hx Pneumococcal Vaccination: 02/11/14 <PATRIA BAEZA - Last Filed: 12/25/17 12:31> Review of Systems - Review of Systems Constitutional: See HPI, Other - elevated potassium EENT: No symptoms reported Cardiovascular: No symptoms reported Respiratory: No symptoms reported Gastrointestinal: No symptoms reported Genitourinary: No symptoms reported Male Genitourinary: No symptoms reported Musculoskeletal: No symptoms reported Skin: No symptoms reported Hematologic/Lymphatic: No symptoms reported Neurological/Psychological: No symptoms reported -: Yes All other systems reviewed and negative <PATRIA BAEZA - Last Filed: 12/25/17 12:31> Physical Exam <PATRIA BAEZA - Last Filed: 12/25/17 12:31> <BERTA MEJIA - Last Filed: 12/25/17 18:55> - Vital signs Vitals: Resp Pulse Ox 17 100 12/25/17 11:37 12/25/17 11:37 - Notes Notes: Physical Exam: General: Alert, appears well. HEENT: Normocephalic. Atraumatic. PERRL. Extraocular movements intact. Oropharynx clear. Neck: Supple. Non-tender. Respiratory: No respiratory distress. Clear and equal breath sounds bilaterally. Cardiovascular: Regular rate and rhythm. Abdominal: Normal Inspection. Non-tender. No distension. Normal Bowel Sounds. Back: Non-tender. No deformity or step off. Extremities: Moves all four extremities. Upper extremities: AV fistula in right forearm. Normal ROM. Lower extremities: Normal inspection. No edema. Normal ROM. Neurological: Normal cognition. AAOx4. Normal speech. Psychological: Normal affect. Normal Mood. Skin: Warm. Dry. Normal color. (PATRIA BAEZA) Course <PATRIA BAEZA - Last Filed: 12/25/17 12:31> - Laboratory Result Diagrams: 12/25/17 14:10 - EKG Interpretation by Hi EKG shows normal: Sinus rhythm, [employer], Intervals, ST-T Waves. abnormal: QRS Complexes - Old inferior IA, old anterolateral IA Rate: Normal - 69 Rhythm: NSR [employer]/QRS: IVCD P Waves: LAE When compared to previous EKG there are: Changes noted - T waves in the V leads are a little taller than previous EKG <BERTA MEJIA - Last Filed: 12/25/17 18:55> - Re-evaluation Re-evalutation: 12/25/17 18:53 Potassium is 5.7 after dialysis in the emergency room department. (BERTA MEJIA) - Vital Signs Vital signs: Temp Pulse Resp BP Pulse Ox 98.1 F 15 160/91 H 100 12/25/17 13:00 12/25/17 12:15 12/25/17 12:15 12/25/17 12:15 - Laboratory Laboratory results interpreted by me: 12/25/17 12/25/17 12:42 14:10 Potassium 7.0 H* 5.7 H D Discharge <PATRIA BAEZA - Last Filed: 12/25/17 12:31> <BERTA MEJIA - Last Filed: 12/25/17 18:55> - Discharge Clinical Impression: Hyperkalemia, ESRD on dialysis, Dietary indiscretion Condition: Stable Disposition: HOME, SELF-CARE Additional Instructions: Stop eating bananas and other foods that have high potassium content. Follow-up with Dr. Lowery tomorrow. Referrals: ALTAGRACIA HERNANDEZ DO [Primary Care Provider] - Follow up as needed Denise LOWERY MD [ACTIVE STAFF] - Follow up tomorrow Scribe Attestation: 12/25/17 12:19 I personally performed the services described in the documentation, reviewed and edited the documentation which was dictated to the scribe in my presence, and it accurately records my words and actions. (BERTA MEJIA) Scribe Documentation - Scribe Written by Ivon:: Ivon Preston, 12/25/2017 1307 acting as scribe for :: Shira <PATRIA BAEZA - Last Filed: 12/25/17 12:31>
--- NOTE | 2017-12-25 14:03 | EKG REPORT ---
SEVERITY:- ABNORMAL ECG - SINUS RHYTHM LEFT ATRIAL ABNORMALITY NONSPECIFIC INTRAVENTRICULAR CONDUCTION DELAY INFERIOR INFARCT, OLD CONSIDER ANTERIOR INFARCT : Confirmed by: Danyel Sarabia MD 25-Dec-2017 14:02:10
--- NOTE | 2017-12-25 16:00 | PDOC PROGRESS REPORT ---
Subjective Progress Note for:: 12/25/17 Reason For Visit: This patient who is well-known to me with ESRD on dialysis was transferred from the [employer] to the ER. Earlier he had been admitted by Dr. Jameson Singh for angioplasty of his AV fistula only to find that his potassium was 6.7 prior to the procedure. The for the procedure was aborted and patient transferred to the ER. He was given initial conservative measures and Dr. Escobar from the ER discussed the patient with me and I decided to initiate urgent hemodialysis. Patient seen undergoing dialysis without any issues. His is by his bedside.Patient always has had a history of noncompliance with diet and resulting with frequent high potassium in spite of numerous advises on the consequences including sudden . He again admits to indiscretion with his diet especially bananas and melons.Patient denies any history of chest pain or shortness of breath. No abdominal pains, constipation. No history of being on any NSAIDs.Labs and medications were reviewed with the patient and his . Physical Exam Vital Signs: Temp Pulse Resp BP Pulse Ox 98.1 F 15 160/91 H 100 12/25/17 13:00 12/25/17 12:15 12/25/17 12:15 12/25/17 12:15 Intake & Output 12/24/17 12/25/17 12/26/17 06:59 06:59 06:59 Weight 81.2 kg General appearance: PRESENT: no acute distress Respiratory exam: PRESENT: clear to auscultation roverto. ABSENT: crackles, rhonchi Cardiovascular exam: PRESENT: +S1, +S2 GI/Abdominal exam: PRESENT: normal bowel sounds, soft. ABSENT: organomegaly, tenderness Extremities exam: ABSENT: pedal edema Neurological exam: PRESENT: alert, awake, oriented to person, oriented to place Psychiatric exam: PRESENT: appropriate affect Skin exam: ABSENT: erythema, mottled, rash Results Laboratory Results: 12/25/17 12:42 12/25/17 12:42 Potassium 7.0 H* Assessment & Plan - Diagnosis (1) ESRD on dialysis Plan: Patient seen by undergoing dialysis without any issues.Vital signs are stable. Dialysis is being supervised to ensure safe and smooth procedure. Plan to dialyze him on a 1K bath for 1 hour followed by 2K for 2 hours. Plan to remove 1-2 L as tolerated. Dialysis orders were reviewed and discussed with the treating dialysis nurse Alina. (2) Hyperkalemia Plan: Advised on a low potassium diet. We will stop his lisinopril as this and mentioned that he is on it. Patient unsure. We will follow-up on this. We discussed implications of hyperkalemia including sudden cardiac arrest. (3) Hypertension Plan: Uncontrolled. See response to dialysis. Advised compliance with his medications and diet.
[2017-12-25 19:36] VITALS: BP 122/64
== END 2017-12-25 18:45 | disposition home or self-care (01) ==
LOC: ER 11:29
DX: E87.5 Hyperkalemia (principal); I12.0 Hypertensive chronic kidney disease with stage 5 chronic kidney disease or end stage renal disease; N18.6 End stage renal disease; Z99.2 Dependence on renal dialysis; I45.9 Conduction disorder, unspecified; I25.10 Atherosclerotic heart disease of native coronary artery without angina pectoris; I25.2 Old myocardial infarction; Z95.1 Presence of aortocoronary bypass graft
CPT/HCPCS: 93005; 94640; 99284; 96374; 36415; 84132; 93010; J0610; A9270

== ENCOUNTER → 2017-12-25 | Day surgery (SDC) | payer MEDICARE, MEDICAID ==
[~2017-12-25] MED LIST changes: -OXYCODONE-ACETAMINOPHEN 5-325 MG TABLET PO PRN
[2017-12-25 09:43] VITALS: BP 141/90
[2017-12-25 10:13] LABS: HEMATOCRIT 35.4 % (37.9-51.0); HEMOGLOBIN 12.1 g/dL (13.5-17.0); MEAN CORPUSCULAR HEMOGLOBIN 31.1 pg (27.0-33.4); MEAN CORPUSCULAR HGB CONC 34.3 g/dL (32.0-36.0); MEAN CORPUSCULAR VOLUME 91 fl (80-97); PLATELET COUNT 222 10^3/uL (150-450); RED BLOOD COUNT 3.91 10^6/uL (4.35-5.55); RED CELL DISTRIBUTION WIDTH 13.5 % (11.5-14.0); WHITE BLOOD COUNT 8.4 10^3/uL (4.0-10.5)
[2017-12-25 10:31] LABS: ANION GAP 17 (5-19); BLOOD UREA NITROGEN 45 mg/dL (7-20); CALCIUM 10.2 mg/dL (8.4-10.2); CARBON DIOXIDE 24 mmol/L (22-30); CHLORIDE 105 mmol/L (98-107); GLUCOSE 95 mg/dL (75-110); SODIUM 146.4 mmol/L (137-145)
[2017-12-25 10:40] LABS: POTASSIUM 6.7 mmol/L (3.6-5.0)
== END ==
LOC: CCL 09:20
PROVIDERS: ATTEND Surgery
DX: T82.858A Stenosis of other vascular prosthetic devices, implants and grafts, initial encounter (principal); Y83.2 Surgical operation with anastomosis, bypass or graft as the cause of abnormal reaction of the patient, or of later complication, without mention of misadventure at the time of the procedure
CPT/HCPCS: 36415; 85027; 80048; C1769; A9270; Q9967

== ENCOUNTER 2017-12-27 09:20 | Day surgery (SDC) | payer MEDICARE, MEDICAID ==
[2017-12-27] MEDS ORDERED: OXYCODONE-ACETAMINOPHEN 5-325 MG TABLET PO PRN (09:49)
[2017-12-27] MEDS ORDERED: OXYCODONE-ACETAMINOPHEN 5-325 MG TABLET ONE (09:53)
[2017-12-27] MEDS ORDERED: HEPARIN SOD (PORCINE) 5,000 UNIT/ML 1 ML SYRINGE ONE (10:52)
[2017-12-27] MEDS ORDERED: LIDOCAINE 0.5% INJ-PF (5 MG/ML) 50 ML SDV ONE (10:52)
[2017-12-27] MEDS ORDERED: FENTANYL CITRATE INJ/PF 100 MCG/2 ML AMPUL ONE (10:52)
[2017-12-27] MEDS ORDERED: MIDAZOLAM 2 MG/2 ML INJ ONE (10:52)
--- NOTE | 2017-12-27 12:07 | Discharge Summary ---
Discharge Summary (SDC) - Discharge Final Diagnosis: #1 malfunctioning AV fistula, right arm transposed basilic. 2. Renal disease on hemodialysis. 3. Hypertension. Date of Surgery: 12/27/17 Discharge Date: 12/27/17 Condition: Good Treatment or Instructions: Discharge home [after recovery per ASU criteria]. Diet , [renal],as tolerated, when fully awake advance as tolerated. Activities within moderation encouraged. Follow up in my office by appointment in about [1 week]. Call for appointment. Leave wounds [covered], [keep clean and dry, until hemodialysis. Follow-up in office in about 1 month. By appointment Meds per med rec. May shower [in 48 hrs], [try to keep operated area as dry as possible]. Referrals: ALTAGRACIA HERNANDEZ DO [Primary Care Provider] - Discharge Diet: Other (Comments) - Renal. Respiratory Treatments at Home: Deep Breathing/Coughing Discharge Activity: Activity As Tolerated Report the Following to Your Physician Immediately: Shortness of Breath, Unusual Bleeding
--- NOTE | 2017-12-27 12:11 | PDOC H&P ---
General Chief Complaint: The patient is admitted for angioplasty of his existing arteriovenous fistula. A similar attempt 2 days ago was postponed because of a high potassium of 6.7. Repeated and prolonged dialysis has been done since. - Current Medications/Allergies Home Medications: Aspirin [Ecotrin] 81 mg PO DAILY 06/30/14 Clopidogrel Bisulfate [Plavix 75 mg Tablet] 75 mg PO DAILY 06/30/14 Lisinopril 10 mg PO DAILY 06/30/14 Metoprolol Tartrate [Lopressor 25 mg Tablet] 100 mg PO BID 06/30/14 Simvastatin 20 mg PO DAILY 06/30/14 Pantoprazole Sodium 40 mg PO DAILY 03/07/16 Ubidecarenone [Coq-10] 100 mg PO DAILY 03/07/16 Allergies/Adverse Reactions: No Known Allergies Allergy (Verified 03/07/16 07:57) Past Medical History Cardiac Medical History: Reports: Coronary Artery Disease, Myocardial Infarction - 2014,DEFIB, Hypertension - on meds Pulmonary Medical History: Denies: Asthma, Bronchitis, Chronic Obstructive Pulmonary Disease (COPD), Pneumonia Neurological Medical History: Denies: Seizures Renal/ Medical History: Reports: End Stage Renal Disease Musculoskeltal Medical History: Denies: Arthritis Hematology: Denies: Anemia Past Surgical History Past Surgical History: Reports: Cardiac Catheterization, Coronary Artery Bypass Graft - x4 2013 Family History Family History: Reviewed & Not Pertinent Parental Family History Reviewed: No Children Family History Reviewed: No Sibling(s) Family History Reviewed.: No Social History Smoking Status: Never Smoker Frequency of Alcohol Use: None Hx Recreational Drug Use: No Hx Prescription Drug Abuse: No Physical Exam Vital Signs: Temp Pulse Resp BP Pulse Ox 98.3 F 72 138/83 H 98 12/27/17 09:51 12/27/17 09:51 12/27/17 09:51 12/27/17 09:51 Additional comments: Constitutional: Well-developed well-nourished gentleman. No apparent acute distress. Eyes: Mucous membranes pink and moist, pupils equal and reactive to light. Conjunctiva normal. Cornea normal. ENT: Hearing grossly normal. External pinna normal to inspection. Teeth intact. Tongue normal to inspection. Cardiac: Heart sounds 1 and 2 normal, no murmurs Respiratory breath sounds are present bilaterally, normal. Normal respiratory effort. Psychiatric: Judgment, memory, insight seem normal. Mood is pleasant and appropriate. Extremities: Upper extremities show normal range of movement. Pulses present noted to the radial arteries. Capillary refill normal. No cyanosis noted. No muscle wasting noted. Right-sided transposed basilic fistula noted. Quite soft , suggestive of inflow stenosis. . Impression/Plan Plan: The patient is admitted for angiogram and probably angioplasty. The goal is improvement and prolonged use of his right arm AV fistula. The risks, benefits, expected outcome and alternatives are familiar to the patient and he wishes to proceed.
--- NOTE | 2017-12-27 12:16 | RADIOLOGY REPORT (SQ) ---
EXAM DESCRIPTION: FISTULAGRAM W/PLASTY COMPLETED DATE/TIME: 12/27/2017 12:00 pm REASON FOR STUDY: T82.858A T82.858A STENOSIS OF OTHER VASCULAR PROSTH DEV/GRFT, INIT COMPARISON: 03/27/2017 FLUOROSCOPY TIME: 0.7 minutes 87 digital radiographic images saved to PACS. TECHNIQUE: Intra-operative images acquired during surgical procedure to evaluate progress. NUMBER OF IMAGES: 87 digital radiographic images LIMITATIONS: None. FINDINGS: Intra procedural imaging and fluoro during dialysis access evaluation and plasty by Dr. Alvarez cordon. Please see the operative report further details IMPRESSION: Intra procedural imaging and fluoro COMMENT: Quality ID [id number]: Final reports for procedures using fluoroscopy that document radiation exp osure indices, or exposure time and number of fluorographic images (if radiation exposure indices are not available) Please consult full operative report of the attending physician for description of the procedure. TECHNICAL DOCUMENTATION: JOB ID: [id number] [employer]- All Rights Reserved Reading location - IP/workstation name: [email or web address]
--- NOTE | 2017-12-27 12:17 | Operative Report ---
Operative Report DATE OF SURGERY: 12/27/17 PREOPERATIVE DIAGNOSIS: #1 malfunctioning AV fistula, right arm transposed basilic. 2. Renal disease on hemodialysis. 3. Hypertension. POSTOPERATIVE DIAGNOSIS: #1 malfunctioning AV fistula, right arm transposed basilic. 2. Renal disease on hemodialysis. 3. Hypertension. OPERATION: 1. Ultrasound-guided injury to arteriovenous fistula. 2. Angiogram and angioplasty. 3. Angiogram angioplasty with drug-eluting balloon. 4. Angiogram and interpretation. SURGEON: JABARI DODD ELECTION ASSISTANT: None. TISSUE REMOVED OR ALTERED: Not applicable. COMPLICATIONS: None. ESTIMATED BLOOD LOSS: 2 mL. INTRAOPERATIVE FINDINGS: Of a well founded right arm transposed basilic vein fistula. Initially quite soft. Ultrasound of great value in safe injury. Retrograde access obtained. Angiogram demonstrated tight stenosis about 80% at 2, 4, 7 cm from the anastomosis. These were resolved except for residual 15 % stenosis at the area 2 cm from the anastomosis. Considerable improvement in the angiogram and of the flow after the procedure. Consideration to be given of a high-pressure balloon at the resistant area in future. PROCEDURE: PROCEDURE: After verifying the procedure and having obtained informed consent, the patient's right arm and forearm were prepared with Chlorhexidine and draped out with sterile linen. Local anesthesia infiltrated. Percutaneous access into the fistula ,[retrograde], obtained about [20 cm] from the arteriovenous anastomosis using a micro puncture needle followed by micro puncture wire and then a micro puncture catheter. This was done on ultrasound guidance using real-time access into the vein. Ultrasound was also used to size the vein. Angiogram demonstrated the aforementioned findings. Angioplasty was elected. A 0.035 [place] wire was inserted, and over this, a 6 [place] short introducer was placed, this was followed by a 6 mm high-pressure angioplasty balloon . Angioplasty was now done at the culprit areas. This was done very carefully and in the up to 16 amita sustained for 2 to 4 minutes. Angiogram demonstrated an acceptable outcome. The balloon was now swapped over the wire for a 6 mm drug-eluting angioplasty balloon. Angioplasty was Done using a drug-eluting balloon, 6 mm. Inflating up to 11 atmospheres for 4 minutes.]. Completion angiogram demonstrated [acceptable result]. The instrumentation was now withdrawn over hand pressure for 10 minutes . Dressings applied, procedure concluded. Exposure time: 0.7 minutes Radiation: 6.79 Ruth rosenbaum. Contrast: 25 mL of Isovue-M 300 low osmolality. DICTATING PHYSICIAN: JABARI JAMES M.D. cc: JABARI JAMES M.D. ([id number]) >>
[2017-12-27 12:56] VITALS: BP 141/75
== END 2017-12-27 12:55 | disposition home or self-care (01) ==
LOC: CCL 09:20
PROVIDERS: ATTEND Surgery
DX: T82.858A Stenosis of other vascular prosthetic devices, implants and grafts, initial encounter (principal); Y83.2 Surgical operation with anastomosis, bypass or graft as the cause of abnormal reaction of the patient, or of later complication, without mention of misadventure at the time of the procedure; I12.0 Hypertensive chronic kidney disease with stage 5 chronic kidney disease or end stage renal disease; N18.6 End stage renal disease; Z79.82 Long term (current) use of aspirin; Z79.899 Other long term (current) drug therapy; I25.2 Old myocardial infarction; Z95.810 Presence of automatic (implantable) cardiac defibrillator; Z01.818 Encounter for other preprocedural examination; Z86.73 Personal history of transient ischemic attack (TIA), and cerebral infarction without residual deficits
CPT/HCPCS: 36902; 76937; C2623; C1752; C1887; C1725; Q9967; C1769; J2250; J1644 ×2; A9270 ×2; J3010; J3490

== ENCOUNTER 2018-05-15 08:55 | Day surgery (SDC) | payer MEDICAID, MEDICARE ==
[~2018-05-15 08:55] MED LIST changes: +OXYCODONE-ACETAMINOPHEN 5-325 MG TABLET PO PRN
[2018-05-15 10:01] LABS: HEMATOCRIT 34.4 % (37.9-51.0); MEAN CORPUSCULAR HEMOGLOBIN 30.7 pg (27.0-33.4); MEAN CORPUSCULAR HGB CONC 34.9 g/dL (32.0-36.0); MEAN CORPUSCULAR VOLUME 88 fl (80-97); PLATELET COUNT 200 10^3/uL (150-450); RED BLOOD COUNT 3.91 10^6/uL (4.35-5.55); RED CELL DISTRIBUTION WIDTH 13.3 % (11.5-14.0); WHITE BLOOD COUNT 9.7 10^3/uL (4.0-10.5)
[2018-05-15 10:21] LABS: ANION GAP 12 (5-19); BLOOD UREA NITROGEN 50 mg/dL (7-20); CALCIUM 10.7 mg/dL (8.4-10.2); CARBON DIOXIDE 28 mmol/L (22-30); CHLORIDE 100 mmol/L (98-107); GLUCOSE 102 mg/dL (75-110); SODIUM 140.3 mmol/L (137-145)
[2018-05-15] MEDS ORDERED: FENTANYL CITRATE INJ/PF 100 MCG/2 ML AMPUL ONE (12:12)
[2018-05-15] MEDS ORDERED: LIDOCAINE 0.5% INJ-PF (5 MG/ML) 50 ML SDV ONE (12:12)
[2018-05-15] MEDS ORDERED: MIDAZOLAM 2 MG/2 ML INJ ONE (12:12)
[2018-05-15] MEDS ORDERED: HEPARIN SOD (PORCINE) 5,000 UNIT/ML 1 ML SYRINGE ONE (12:12)
--- NOTE | 2018-05-15 13:18 | PDOC H&P ---
General Chief Complaint: The patient presents with a malfunctioning arteriovenous fistula, difficulty in access. - Current Medications/Allergies Home Medications: Aspirin [Ecotrin] 81 mg PO DAILY 06/30/14 Clopidogrel Bisulfate [Plavix 75 mg Tablet] 75 mg PO DAILY 06/30/14 Metoprolol Tartrate [Lopressor 25 mg Tablet] 100 mg PO BID 06/30/14 Simvastatin 20 mg PO DAILY 06/30/14 Pantoprazole Sodium 40 mg PO DAILY 03/07/16 Ubidecarenone [Coq-10] 100 mg PO DAILY 03/07/16 Clonidine HCl 0.3 mg PO BID 05/15/18 Allergies/Adverse Reactions: No Known Allergies Allergy (Verified 03/07/16 07:57) Past Medical History Cardiac Medical History: Reports: Coronary Artery Disease, Myocardial Infarction - 2014,DEFIB, Hypertension - on meds Pulmonary Medical History: Denies: Asthma, Bronchitis, Chronic Obstructive Pulmonary Disease (COPD), Pneumonia Neurological Medical History: Denies: Seizures Renal/ Medical History: Reports: End Stage Renal Disease Musculoskeltal Medical History: Denies: Arthritis Hematology: Denies: Anemia Past Surgical History Past Surgical History: Reports: Cardiac Catheterization, Coronary Artery Bypass Graft - x4 2013 Family History Family History: Reviewed & Not Pertinent Parental Family History Reviewed: No Children Family History Reviewed: No Sibling(s) Family History Reviewed.: No Social History Smoking Status: Never Smoker Frequency of Alcohol Use: None Hx Recreational Drug Use: No Hx Prescription Drug Abuse: No Physical Exam Vital Signs: Temp Pulse Resp BP Pulse Ox 98.3 F 66 14 144/88 H 99 05/15/18 09:46 05/15/18 09:46 05/15/18 09:46 05/15/18 09:46 05/15/18 09:46 Additional comments: Constitutional: Well-developed well-nourished gentleman. No apparent acute distress. Eyes: Mucous membranes pink and moist, pupils equal and reactive to light. Conjunctiva normal. Cornea normal. ENT: Hearing grossly normal. External pinna normal to inspection. Teeth intact. Tongue normal to inspection. Cardiac: Heart sounds normal. Respiratory: Normal respiratory effort. Chest: Left-sided pacemaker in place. Psychiatric: Judgment, memory, insight seem normal. Mood is pleasant and appropriate. Extremities: Upper extremities show normal range of movement. Pulses present noted to the radial arteries. Capillary refill normal. No cyanosis noted. No muscle wasting noted. Right arm transposed basilic fistula in place somewhat hard to palpate. Impression/Plan Plan: The plan is to do a fistula angiogram and possible angioplasty. The hope is to improve fistula function use of fistula in this patient with very poor veins.
--- NOTE | 2018-05-15 13:19 | Discharge Summary ---
Discharge Summary (SDC) - Discharge Final Diagnosis: #1 malfunctioning AV fistula. 2. End-stage renal disease on hemodialysis. 3. History of stroke. 4. History of myocardial infarction. 5. Hypertension. Date of Surgery: 05/15/18 Discharge Date: 05/15/18 Condition: Fair Treatment or Instructions: Discharge home [after recovery per ASU criteria]. Diet , [renal],as tolerated, when fully awake advance as tolerated. Activities within moderation encouraged. Follow up in my office by appointment in about [1 week]. Call for appointment. Leave wounds [covered], [keep clean and dry, until hemodialysis. Meds per med rec. May shower [in 48 hrs], [try to keep operated area as dry as possible]. Referrals: ALTAGRACIA HERNANDEZ DO [Primary Care Provider] - Discharge Diet: Other (Comments) - Renal. Respiratory Treatments at Home: Deep Breathing/Coughing Discharge Activity: Activity As Tolerated Report the Following to Your Physician Immediately: Shortness of Breath, Unusual Bleeding
--- NOTE | 2018-05-15 13:23 | Operative Report ---
Operative Report DATE OF SURGERY: 05/15/18 PREOPERATIVE DIAGNOSIS: #1 malfunctioning AV fistula. 2. End-stage renal dise ase on hemodialysis. 3. History of stroke. 4. History of myocardial infarction. 5. Hypertension. POSTOPERATIVE DIAGNOSIS: #1 malfunctioning AV fistula. 2. End-stage renal disease on hemodialysis. 3. History of stroke. 4. History of myocardial infarction. 5. Hypertension. OPERATION: 1. Needle access into the fistula. 2. Fistula angioplasty. 3. Drug-eluting angioplasty. 4. Angiogram and interpretation. SURGEON: JABARI DODD PATTERN FILER: None. ANESTHESIA: Moderate Sedation TISSUE REMOVED OR ALTERED: Not applicable. COMPLICATIONS: None. ESTIMATED BLOOD LOSS: 5 mL. INTRAOPERATIVE FINDINGS: Of a long stenosis about 3 cm long lower spine at about the level of the elbow joint. Estimated to be about 90% of the adjacent lumen. Corrected with almost elimination of apparent visible gradient. PROCEDURE: PROCEDURE: After verifying the procedure and having obtained informed consent, the patient's right arm was prepared with Chlorhexidine and draped out with sterile linen. Local anesthesia infiltrated. Percutaneous access into the fistula ,[ antegrade], obtained about [3 cm] from the arteriovenous anastomosis using a micro puncture needle followed by micro puncture wire and then a micro puncture catheter. A 0.035 [place] wire was inserted, and over this, a 7 [place] short introducer was placed. Angiogram demonstrated the aforementioned findings. Angioplasty was elected. , this was followed by a [6 -mm] angioplasty balloon . Angioplasty was Done at the culprit area. Inflating inflating using a 3 mils syringe for 3 minutes at a time.]. Completion angiogram demonstrated [satisfactory result]. A 7 mm drug-eluting balloon, 6 mm long was now inserted over the culprit area and inflated up to 8 amita, for 3 minutes. Completion angiogram was satisfactory. The instrumentation was now withdrawn over hand pressure for 10 minutes . Dressings applied, procedure concluded. Exposure time: 0.8 minutes. Radiation: 10.97 mGy. Contrast: 25 mL of Isovue-300, low osmolality DICTATING PHYSICIAN: JABARI JAMES M.D. cc: JABARI JAMES M.D. ([id number]) >>
[2018-05-15 14:40] VITALS: BP 136/79
--- NOTE | 2018-05-15 15:39 | RADIOLOGY REPORT (SQ) ---
EXAM DESCRIPTION: FISTULAGRAM W/PLASTY COMPLETED DATE/TIME: 05/15/2018 3:08 pm REASON FOR STUDY: T82.858A T82.858A STENOSIS OF OTHER VASCULAR PROSTH DEV/GRFT, INIT COMPARISON: None. FLUOROSCOPY TIME: 0.8 minutes Spot images saved to PACS. TECHNIQUE: Intra-operative images acquired during surgical procedure to evaluate progress. NUMBER OF IMAGES: 65 LIMITATIONS: None. FINDINGS: Fluoroscopy was provided for intraoperative procedure. Please refer to the operative repo rt for further discussion. IMPRESSION: IMAGE(S) OBTAINED DURING PROCEDURE. COMMENT: Quality ID [id number]: Final reports for procedures using fluoroscopy that document radiation exp osure indices, or exposure time and number of fluorographic images (if radiation exposure indices are not available) Please consult full operative report of the attending physician for description of the procedure. TECHNICAL DOCUMENTATION: JOB ID: [id number] [employer]- All Rights Reserved Reading location - IP/workstation name: [email or web address]
== END 2018-05-15 14:35 | disposition home or self-care (01) ==
LOC: CCL 08:55
PROVIDERS: ATTEND Surgery
DX: T82.858A Stenosis of other vascular prosthetic devices, implants and grafts, initial encounter (principal); Y83.2 Surgical operation with anastomosis, bypass or graft as the cause of abnormal reaction of the patient, or of later complication, without mention of misadventure at the time of the procedure; I12.0 Hypertensive chronic kidney disease with stage 5 chronic kidney disease or end stage renal disease; N18.6 End stage renal disease; Z99.2 Dependence on renal dialysis; Z86.73 Personal history of transient ischemic attack (TIA), and cerebral infarction without residual deficits; I25.2 Old myocardial infarction; Z79.82 Long term (current) use of aspirin; Z79.899 Other long term (current) drug therapy; I25.10 Atherosclerotic heart disease of native coronary artery without angina pectoris; Z95.810 Presence of automatic (implantable) cardiac defibrillator; Z79.01 Long term (current) use of anticoagulants
CPT/HCPCS: 36415; 85027; 80048; 36902; C1725; C2623; C1752; C1769; J2250; J1644 ×2; A9270; J3010; J3490

== ENCOUNTER 2018-08-14 15:23 | Inpatient (IN) | payer MEDICARE, MEDICAID ==
--- NOTE | 2018-08-14 15:38 | ER Document Report ---
ED Medical Screen (RME) - General Chief Complaint: Breathing Difficulty Stated Complaint: DIFFICULTY BREATHING Time Seen by Provider: 08/14/18 15:32 Primary Care Provider: Denise MATTHEW MD [Primary Care Provider] - Follow up as needed TRAVEL OUTSIDE OF THE [place] IN LAST 30 DAYS: No - HPI Notes: 08/14/18 15:36 Patient is a 58-year-old male with a history of end-stage renal disease and on dialysis (Sunday/Sunday/Sunday), hypertension, coronary artery disease who presents the emergency department complaining of shortness of breath, dry semi- productive cough, nasal congestion/discharge, weakness, subjective fever over the last 5 days. He is still able to eat and drink, but does have a decreased p.o. intake. He is still able to produce urine and is having normal bowel movements. His last dialysis session was Sunday. He did not go today. Denies any headache, neck pain, sore throat, chest pain, palpitations, syncope, abdominal pain, nausea/vomiting/diarrhea, urinary retention, dysuria, hematuria, or rash. I have treated and performed a rapid initial assessment of this patient. A comprehensive ED assessment and evaluation of the patient, analysis of test results and completion of medical decision making process will be conducted by additional ED providers. PHYSICAL EXAMINATION: GENERAL: Well-appearing, well-nourished and in no acute distress. A&Ox4. Answers questions appropriately. LUNGS: crackles noted near base L>R. No retractions. Dry cough noted during eval. HEART: Regular rate and rhythm without murmurs, rubs, gallops. ABDOMEN: Soft, nondistended abdomen. No guarding, no rebound. Normal bowel sounds present. No CVA tenderness bilaterally. + mild epigastric tenderness (cannot elicit thorough abd exam w/o table, however). Extremities: No cyanosis, clubbing, or edema b/l. Flower neg b/l. No LE asymmetry. NEUROLOGICAL: Normal speech, normal gait. PSYCH: Normal mood, normal affect. - Related Data Allergies/Adverse Reactions: No Known Allergies Allergy (Verified 08/14/18 15:24) Past Medical History - Past Medical History Cardiac Medical History: Reports: Hx Coronary Artery Disease, Hx Heart Attack - 2014,DEFIB, Hx Hypercholesterolemia, Hx Hypertension - on meds Pulmonary Medical History: Denies: Hx Asthma, Hx Bronchitis, Hx COPD, Hx Pneumonia Neurological Medical History: Reports: Hx Cerebrovascular Accident. Denies: Hx Seizures Renal/ Medical History: Reports: Hx End Stage Renal Disease. Denies: Hx Peritoneal Dialysis Musculoskeltal Medical History: Denies Hx Arthritis Past Surgical History: Reports: Hx Cardiac Catheterization, Hx Cardiac Surgery - open heart, Hx Coronary Artery Bypass Graft - x4 2013 - Immunizations Hx Diphtheria, Pertussis, Tetanus Vaccination: Yes History of Influenza Vaccine for 02/2017 - 07/2017 Season: Yes Influenza Administration Date for 02/2017 - 07/2017 Season: 01/12/17 Physical Exam - Vital signs Vitals: Temp Pulse Resp BP Pulse Ox 99.9 F 105 H 18 149/78 H 94 08/14/18 15:28 08/14/18 15:28 08/14/18 15:28 08/14/18 15:28 08/14/18 15:28 Course - Vital Signs Vital signs: Temp Pulse Resp BP Pulse Ox 99.9 F 105 H 18 149/78 H 94 08/14/18 15:28 08/14/18 15:28 08/14/18 15:28 08/14/18 15:28 08/14/18 15:28 Doctor's Discharge - Discharge Referrals: Denise MATTHEW MD [Primary Care Provider] - Follow up as needed
--- NOTE | 2018-08-14 16:44 | RADIOLOGY REPORT (SQ) ---
EXAM DESCRIPTION: CHEST SINGLE VIEW COMPLETED DATE/TIME: 08/14/2018 4:33 pm REASON FOR STUDY: cough, sob COMPARISON: AP chest 07/07/2014 EXAM PARAMETERS: NUMBER OF VIEWS: One view. TECHNIQUE: Single frontal radiographic view of the chest acquired. RADIATION DOSE: NA LIMITATIONS: None. FINDINGS: LUNGS AND PLEURA: There is consolidation in the bilateral lower lobes right greater than l eft, worrisome for pneumonia. Pulmonary edema could mimic this appearance. No pleural effusion. No pneumothorax. MEDIASTINUM AND HILAR STRUCTURES: No masses. Contour normal. HEART AND VASCULAR STRUCTURES: Moderate to marked cardiomegaly, stable. Old sternotomy for CABG BONES: No acute findings. HARDWARE: Left-sided single lead pacemaker OTHER: No other significant finding. IMPRESSION: There is bilateral lower lobe airspace disease right greater than left. Findings could either represent asymmetric basilar pneumonia or pulmonary edema. TECHNICAL DOCUMENTATION: JOB ID: [id number] [employer]- All Rights Reserved Reading location - IP/workstation name: [email or web address]
[2018-08-14 17:52] LABS: ABSOLUTE BASOPHILS # (AUTO) 0.1 10^3/uL (0.0-0.2); ABSOLUTE EOSINOPHILS # (AUTO) 0.1 10^3/uL (0.0-0.6); ABSOLUTE LYMPHOCYTES (AUTO) 0.6 10^3/uL (0.5-4.7); ABSOLUTE MONOCYTES (AUTO) 1.5 10^3/uL (0.1-1.4); ABSOLUTE NEUT (AUTO) 7.5 10^3/uL (1.7-8.2); BASOPHILS % (AUTO) 1.3 % (0-2); EOSINOPHILS % (AUTO) 0.7 % (0-6); HEMATOCRIT 30.8 % (37.9-51.0); HEMOGLOBIN 10.9 g/dL (13.5-17.0); LYMPHOCYTES % (AUTO) 6.5 % (13-45); MEAN CORPUSCULAR HEMOGLOBIN 30.5 pg (27.0-33.4); MEAN CORPUSCULAR HGB CONC 35.3 g/dL (32.0-36.0); MEAN CORPUSCULAR VOLUME 86 fl (80-97); MONOCYTES % (AUTO) 15.4 % (3-13); PLATELET COUNT 245 10^3/uL (150-450); RED BLOOD COUNT 3.57 10^6/uL (4.35-5.55); RED CELL DISTRIBUTION WIDTH 13.3 % (11.5-14.0); SEGMENTED NEUTROPHILS % (AUTO) 76.1 % (42-78); TOTAL CELLS COUNTED % (AUTO) 100 %; WHITE BLOOD COUNT 9.8 10^3/uL (4.0-10.5)
[2018-08-14 18:03] LABS: INTERNATIONAL RATION (INR) 1.09; PROTHROMBIN TIME 14.7 SEC (11.4-15.4)
[2018-08-14 18:07] LABS: ALANINE AMINOTRANSFERASE 24 U/L (21-72); ALBUMIN 4.1 g/dL (3.5-5.0); ALKALINE PHOSPHATASE 113 U/L (38-126); ANION GAP 15 (5-19); ASPARTATE AMINO TRANSFERASE 16 U/L (17-59); BILIRUBIN,TOTAL 1.4 mg/dL (0.2-1.3); BLOOD UREA NITROGEN 45 mg/dL (7-20); CALCIUM 10.7 mg/dL (8.4-10.2); CARBON DIOXIDE 25 mmol/L (22-30); CHLORIDE 100 mmol/L (98-107); GLUCOSE 88 mg/dL (75-110); POTASSIUM 4.2 mmol/L (3.6-5.0); SODIUM 139.9 mmol/L (137-145); TOTAL PROTEIN 7.2 g/dL (6.3-8.2)
[2018-08-14] MEDS ORDERED: CEFTRIAXONE 1 GM/D5W RTU 1 GM/50 ML RTUPB IV ONE (18:08)
[2018-08-14] MEDS ORDERED: AZITHROMYCIN INJ 500 MG VIAL IV ONE (18:09)
--- NOTE | 2018-08-14 18:14 | ER Document Report ---
ED General - General Chief Complaint: Breathing Difficulty Stated Complaint: DIFFICULTY BREATHING Time Seen by Provider: 08/14/18 15:32 Mode of Arrival: Ambulatory Information source: Patient Notes: This is a 58-year-old man with a history of coronary artery disease (CABG x4), end-stage renal disease (hemodialysis Sunday, Sunday, Sunday) who presents to the emergency room with low-grade fever, productive cough, congestion, wheezing, dyspnea on exertion and shortness of breath at rest. Patient's symptoms have been for the last few days. TRAVEL OUTSIDE OF THE [place] IN LAST 30 DAYS: No - HPI Onset: Last week Onset/Duration: Gradual Quality of pain: Dull Severity: Mild Pain Level: 2 Associated symptoms: Chills, Nonproductive cough, Shortness of breath, Weakness Exacerbated by: Movement Relieved by: Remaining still Similar symptoms previously: Yes Recently seen / treated by doctor: No - Related Data Allergies/Adverse Reactions: No Known Allergies Allergy (Verified 08/14/18 15:24) Past Medical History - General Information source: Patient - Social History Smoking Status: Former Smoker Cigarette use (# per day): No Chew tobacco use (# tins/day): No Frequency of alcohol use: None Drug Abuse: None Lives with: Family Family History: Reviewed & Not Pertinent Patient has suicidal ideation: No Patient has homicidal ideation: No - Past Medical History Cardiac Medical History: Reports: Hx Coronary Artery Disease, Hx Heart Attack - 2013,DEFIB, Hx Hypercholesterolemia, Hx Hypertension - on meds Pulmonary Medical History: Denies: Hx Asthma, Hx Bronchitis, Hx COPD, Hx Pneumonia Neurological Medical History: Reports: Hx Cerebrovascular Accident. Denies: Hx Seizures Renal/ Medical History: Reports: Hx End Stage Renal Disease. Denies: Hx Peritoneal Dialysis Musculoskeletal Medical History: Denies Hx Arthritis Past Surgical History: Reports: Hx Cardiac Catheterization, Hx Cardiac Surgery - open heart, Hx Coronary Artery Bypass Graft - x4 2013 - Immunizations Hx Diphtheria, Pertussis, Tetanus Vaccination: Yes Hx Pneumococcal Vaccination: 02/11/14 Review of Systems - Review of Systems Constitutional: Chills, Fever EENT: No symptoms reported Cardiovascular: denies: Chest pain, Palpitations, Heart racing Respiratory: Cough, Short of breath, Wheezing Gastrointestinal: denies: Abdominal pain, Diarrhea, Nausea Genitourinary: No symptoms reported Male Genitourinary: No symptoms reported Musculoskeletal: No symptoms reported Skin: No symptoms reported Hematologic/Lymphatic: No symptoms reported Neurological/Psychological: No symptoms reported Physical Exam - Vital signs Vitals: Temp Pulse Resp BP Pulse Ox 99.9 F 105 H 18 149/78 H 94 08/14/18 15:28 08/14/18 15:28 08/14/18 15:28 08/14/18 15:28 08/14/18 15:28 Notes: Physical exam: GENERAL: She is alert and oriented x3, no acute distress. Oxygen saturation was 92% at room air. His O2 sat is currently 96% on 2 L. HEAD: Atraumatic, normocephalic. EYES: Pupils equal round and reactive to light, extraocular movements intact, sclera anicteric, conjunctiva are normal. ENT: TMs normal, nares patent, oropharynx clear without exudates. Moist mucous membranes. NECK: Normal range of motion, supple without obvious mass or JVD. LUNGS: Bilateral crackles (left greater than the right) HEART: Regular rate and rhythm without murmurs, rubs or gallops. ABDOMEN: Soft, normoactive bowel sounds. No tenderness to palpation. No guarding, no rebound. No masses appreciated. EXTREMITIES: Normal range of motion, no pitting or edema. No clubbing or cyanosis. NEUROLOGICAL: Cranial nerves II through XII grossly intact. Normal speech, moving all extremities. PSYCH: Normal mood, normal affect. SKIN: Warm, Dry, normal turgor, no rashes or lesions noted. Course - Re-evaluation Re-evalutation: 08/14/18 23:41 Note: I did discuss the case with Dr. Rodriguez of nephrology. She agreed that the clinical presentation sounds like pneumonia and that there is no need for emergent dialysis at this time. However, she will see the patient in [facility] and the patient will be admitted to the medicine service. The patient was given IV ceftriaxone and IV azithromycin. He was receiving supplemental oxygen. I discussed the case with Dr. Rubio (hospitalist here at [facility]) who accepted the patient for admission. I was instructed an hour after this that we do not have dialysis capabilities at this facility because of an emergent nursing issue. Given this we will have to transfer the patient. I have contacted Dr. Rashad Neumann at [facility] and he has graciously accepted patient in transfer. Patient was stable at the time of transfer by the transfer team. - Vital Signs Vital signs: Temp Pulse Resp BP Pulse Ox 100.3 F 105 H 32 H 158/85 H 93 08/14/18 22:18 08/14/18 15:28 08/14/18 22:15 08/14/18 22:15 08/14/18 22:15 - Laboratory Result Diagrams: 08/14/18 17:34 08/14/18 17:34 Laboratory results interpreted by me: 08/14/18 08/14/18 08/14/18 17:34 17:34 17:34 RBC 3.57 L Hgb 10.9 L Hct 30.8 L Lymphocytes % 6.5 L Monocytes % 15.4 H Absolute Monocytes 1.5 H BUN 45 H Creatinine 10.67 H Est GFR ( Amer) 6 L Est GFR (Non-Af Amer) 5 L Calcium 10.7 H Total Bilirubin 1.4 H Direct Bilirubin 1.0 H AST 16 L NT-Pro-B Natriuret Pep 93248 H - Diagnostic Test Radiology reviewed: Image reviewed, Reports reviewed - Bilateral lower extremity infiltrates - EKG Interpretation by Me Rhythm: NSR - EKG shows [address] depression at 1/L. There is no EKG changes compared to EKG 12/25/2017 Critical Care Note - Critical Care Note Total time excluding time spent on procedures (mins): 60 Discharge - Discharge Clinical Impression: Pneumonia Condition: Stable Disposition: [facility]
[2018-08-14 18:34] LABS: TROPONIN I 0.096 ng/mL
--- NOTE | 2018-08-14 18:50 | EKG REPORT ---
SEVERITY:- ABNORMAL ECG - SINUS RHYTHM PROBABLE LEFT ATRIAL ABNORMALITY NONSPECIFIC INTRAVENTRICULAR CONDUCTION DELAY LVH WITH SECONDARY REPOLARIZATION ABNORMALITY INFERIOR INFARCT, AGE INDETERMINATE : Confirmed by: Danyel Sarabia MD 14-Aug-2018 18:49:28
[2018-08-14] MEDS ORDERED: IPRATROPIUM/ALBUTEROL 0.5-2.5 MG/3 ML AMPUL NEB PRN (20:24)
[2018-08-14] MEDS ORDERED: NORMAL SALINE 1000 ML 1,000 ML IV PRN (20:24)
[2018-08-14] MEDS ORDERED: HEPARIN SOD (PORCINE) 5,000 UNIT/ML 1 ML SYRINGE SUBCUT SCH (22:00)
[2018-08-14 22:19] VITALS: BP 158/85
[2018-08-15] MEDS ORDERED: AZITHROMYCIN 500 MG in DEXTROSE 5%-WATER 250 ML IV SCH (18:00)
== END 2018-08-14 22:13 | disposition short-term general hospital (02) | DRG 193 ==
LOC: ER 15:23 → EH 20:30
PROVIDERS: ADMIT Internal Medicine; ATTEND Internal Medicine
DX: J18.9 Pneumonia, unspecified organism (principal); N18.6 End stage renal disease; I12.0 Hypertensive chronic kidney disease with stage 5 chronic kidney disease or end stage renal disease; I25.10 Atherosclerotic heart disease of native coronary artery without angina pectoris; Z95.1 Presence of aortocoronary bypass graft; Z99.2 Dependence on renal dialysis; I25.2 Old myocardial infarction; Z87.891 Personal history of nicotine dependence; Z86.73 Personal history of transient ischemic attack (TIA), and cerebral infarction without residual deficits; Z95.810 Presence of automatic (implantable) cardiac defibrillator
CPT/HCPCS: 36415; 71045; 80053; 83605; 83880; 84484; 85025; 85610; 87040; 93005; 93010; 96365; 96367; 99285; J0456; J0696

== ENCOUNTER 2018-11-11 06:26 | Day surgery (SDC) | payer MEDICARE, MEDICAID ==
[2018-11-11 07:02] LABS: ABSOLUTE BASOPHILS # (AUTO) 0.1 10^3/uL (0.0-0.2); ABSOLUTE EOSINOPHILS # (AUTO) 0.2 10^3/uL (0.0-0.6); ABSOLUTE LYMPHOCYTES (AUTO) 1.1 10^3/uL (0.5-4.7); ABSOLUTE MONOCYTES (AUTO) 0.9 10^3/uL (0.1-1.4); ABSOLUTE NEUT (AUTO) 6.7 10^3/uL (1.7-8.2); BASOPHILS % (AUTO) 1.3 % (0-2); HEMATOCRIT 32.9 % (37.9-51.0); HEMOGLOBIN 11.6 g/dL (13.5-17.0); MEAN CORPUSCULAR HEMOGLOBIN 30.4 pg (27.0-33.4); MEAN CORPUSCULAR HGB CONC 35.2 g/dL (32.0-36.0); MEAN CORPUSCULAR VOLUME 86 fl (80-97); PLATELET COUNT 236 10^3/uL (150-450); RED BLOOD COUNT 3.82 10^6/uL (4.35-5.55); RED CELL DISTRIBUTION WIDTH 13.7 % (11.5-14.0); SEGMENTED NEUTROPHILS % (AUTO) 74.7 % (42-78); TOTAL CELLS COUNTED % (AUTO) 100 %; WHITE BLOOD COUNT 8.9 10^3/uL (4.0-10.5)
[2018-11-11 07:14] LABS: ANION GAP 15 (5-19); BLOOD UREA NITROGEN 45 mg/dL (7-20); CALCIUM 10.8 mg/dL (8.4-10.2); CARBON DIOXIDE 22 mmol/L (22-30); CHLORIDE 104 mmol/L (98-107); GLUCOSE 106 mg/dL (75-110); SODIUM 140.7 mmol/L (137-145)
[2018-11-11] MEDS ORDERED: LIDOCAINE 0.5% INJ-PF (5 MG/ML) 50 ML SDV ONE (08:06)
[2018-11-11] MEDS ORDERED: MIDAZOLAM 2 MG/2 ML INJ ONE (08:07)
[2018-11-11] MEDS ORDERED: FENTANYL CITRATE INJ/PF 100 MCG/2 ML AMPUL ONE (08:07)
[2018-11-11] MEDS ORDERED: HEPARIN SOD (PORCINE) 1,000 UNIT/ML 10 ML VIAL ONE (08:08)
--- NOTE | 2018-11-11 10:17 | Discharge Summary ---
Discharge Summary (SDC) - Discharge Final Diagnosis: #1 AV fistula, right transposed basilic, malfunction. 2. End-stage renal disease on hemodialysis. 3. Coronary artery disease. 4. Hypertension. Date of Surgery: 11/11/18 Discharge Date: 11/11/18 Condition: Fair Forms: Sedation D/C Instructions, Discharge POC-Surgical Service Treatment or Instructions: Discharge home [after recovery per ASU criteria]. Diet , [renal],as tolerated, when fully awake advance as tolerated. Activities within moderation encouraged. Follow up in my office by appointment in about 1 month. Call for appointment. Leave wounds [covered], [keep clean and dry, until hemodialysis. Meds per med rec. May shower [in 48 hrs], [try to keep operated area as dry as possible]. Referrals: JABARI JAMES MD [ACTIVE STAFF] - 11/21/18 10:45 am Discharge Diet: Other (Comments) - Renal. Respiratory Treatments at Home: Deep Breathing/Coughing Discharge Activity: Activity As Tolerated Report the Following to Your Physician Immediately: Shortness of Breath, Unusual Bleeding
--- NOTE | 2018-11-11 10:19 | PDOC H&P ---
General Chief Complaint: The patient was referred across for fistula evaluation and improvement. Malfunction has been detected on hemodialysis. - Current Medications/Allergies Home Medications: Amlodipine Besylate [Norvasc 10 mg Tablet] 10 mg PO BID 11/11/18 Calcitriol 0.5 mcg PO DAILY 11/11/18 Clopidogrel Bisulfate [Plavix] 75 mg PO DAILY 11/11/18 Doxazosin Mesylate [Cardura] 4 mg PO BID 11/11/18 Metoprolol Succinate 100 mg PO BID 11/11/18 Pantoprazole Sodium 40 mg PO DAILY 11/11/18 Simvastatin 20 mg PO 11/11/18 Ubidecarenone/Vitamin E Mixed [Coq10 Sg 100 Softgel] 11/11/18 Allergies/Adverse Reactions: No Known Allergies Allergy (Verified 11/11/18 06:58) Past Medical History Cardiac Medical History: Reports: Coronary Artery Disease, Myocardial Infarction - 2014,DEFIB, Hyperlipidema, Hypertension - on meds Pulmonary Medical History: Denies: Asthma, Bronchitis, Chronic Obstructive Pulmonary Disease (COPD), Pneumonia Neurological Medical History: Denies: Seizures Renal/ Medical History: Reports: End Stage Renal Disease Musculoskeltal Medical History: Denies: Arthritis Hematology: Denies: Anemia Past Surgical History Past Surgical History: Reports: Cardiac Catheterization, Coronary Artery Bypass Graft - x4 2013 Family History Family History: Reviewed & Not Pertinent Parental Family History Reviewed: No Children Family History Reviewed: No Sibling(s) Family History Reviewed.: No Social History Smoking Status: Never Smoker Frequency of Alcohol Use: None Hx Recreational Drug Use: No Hx Prescription Drug Abuse: No Physical Exam Vital Signs: Temp Pulse Resp BP Pulse Ox 98.2 F 96 18 171/102 H 99 11/11/18 06:45 11/11/18 10:01 11/11/18 10:01 11/11/18 10:01 11/11/18 10:01 Intake & Output 11/10/18 11/11/18 11/12/18 06:59 06:59 06:59 Weight 83.2 kg Additional comments: Constitutional: Well-developed well-nourished gentleman. No apparent acute distress. Eyes: Mucous membranes pink and moist, pupils equal and reactive to light. Conjunctiva normal. Cornea normal. ENT: Hearing grossly normal. External pinna normal to inspection. Teeth intact. Tongue normal to inspection. Cardiac: Heart sounds normal. Respiratory: Normal respiratory effort. Psychiatric: Judgment, memory, insight seem normal. Mood is pleasant and appropriate. Extremities: Upper extremities show normal range of movement. Pulses present noted to the radial arteries. Capillary refill normal. No cyanosis noted. No muscle wasting noted. Right arm transposed basilic fistula noted. Firm and hyper pulsatile is in the first 2 cm. Cephalad soft suggesting an interval stenosis. grossly normal. Vison grossly intact. Impression/Plan Plan: Angiogram and possibly angioplasty in this patient with a beltran AV fistula of the right upper extremity. The procedure, its risks, benefits, expected outcomes alternatives are familiar to the patient and he wishes to proceed.
--- NOTE | 2018-11-11 10:24 | Operative Report ---
Operative Report DATE OF SURGERY: 11/11/18 PREOPERATIVE DIAGNOSIS: #1 AV fistula, right transposed basilic, malfunction. 2. End-stage renal disease on hemodialysis. 3. Coronary artery disease. 4. Hypertension. POSTOPERATIVE DIAGNOSIS: #1 AV fistula, right transposed basilic, malfunction. 2. End-stage renal disease on hemodialysis. 3. Coronary artery disease. 4. Hypertension. OPERATION: 1. Ultrasound guidance into arteriovenous fistula. 2. Fistula angioplasty. 3. Drug-eluting balloon angioplasty. 4. Angiogram interpretation. SURGEON: JABARI DODD SHIPPING AND RECEIVING OPERATOR: None. ANESTHESIA: LMAC TISSUE REMOVED OR ALTERED: Not applicable. COMPLICATIONS: None. ESTIMATED BLOOD LOSS: 5 mL. INTRAOPERATIVE FINDINGS: Of a well founded right arm transposed basilic fistula. Hyper pulsatile cephalic in the first 2 cm. Cephalad somewhat soft suggesting an interval stenosis. Angiogram was concordant with this finding. The first 2 cm of the fistula are somewhat ectatic. For the next 6 cm very tight stenosis up to 90% of the adjacent lumen. In a chain of lakes pattern. The actual arterial anastomosis were not evaluated as it proved challenging to get into them because of the high pressure in the first 2 cm. The stenoses were resolved with no more than 5% residual stenosis at the one area about a centimeter from the initial ectatic area. Use of a drug-eluting balloon will hopefully reduce the recurrence of this long area of stenosis in this beltran fistula. PROCEDURE: PROCEDURE: After verifying the procedure and having obtained informed consent, the patient's right arm and forearm were prepared with Chlorhexidine and draped out with sterile linen. Local anesthesia infiltrated. Percutaneous access into the fistula ,[retrograde], obtained about [20 cm] from the arteriovenous anastomosis using a micro puncture needle followed by micro puncture wire and then a micro puncture catheter. This was done on ultrasound guidance using real-time access into the vein. Ultrasound was also used to size the vein. Angiogram demonstrated the aforementioned findings. Angioplasty was elected. A 0.035 [place] wire was inserted, and over this, a 6 Kazakh short introducer was placed, this was followed by a 6 mm high-pressure angioplasty balloon . Angioplasty was now done at the culprit area. This was done very carefully and in the up to 10 amita sustained for 1 minute at a time. This was done into segments in order to accommodate the long area of stenosis. Angiogram demonstrated successful outcome. The balloon was now swapped over the wire for a 6 mm drug-eluting angioplasty balloon. Angioplasty was Done in the culprit area. Inflating up to 11 atmospheres for 4 minutes.]. Completion angiogram demonstrated [satisfactory result]. The instrumentation was now withdrawn over hand held pressure for 10 minutes. Dressings applied, procedure concluded. Exposure time: 2.1 minutes Radiation: 3.57 Carlyn rosenbaum. Contrast: 25 mL of Isovue-M 300 low osmolality. DICTATING PHYSICIAN: JABARI JAMES M.D. cc: JABARI JAMES M.D. ([id number]) >>
[2018-11-11 11:05] VITALS: BP 185/101
--- NOTE | 2018-11-11 13:26 | RADIOLOGY REPORT (SQ) ---
EXAM DESCRIPTION: FISTULAGRAM W/PLASTY COMPLETED DATE/TIME: 11/11/2018 12:48 pm REASON FOR STUDY: T82.858A T82.858A STENOSIS OF OTHER VASCULAR PROSTH DEV/GRFT, INIT Z79.899 OTHER CUSTODIAL (CURRENT) DRUG THERAPY COMPARISON: None. FLUOROSCOPY TIME: 2.1 minutes 125 images saved to PACS. TECHNIQUE: Intra-operative images acquired during surgical procedure to evaluate progress. NUMBER OF IMAGES: 125 LIMITATIONS: None. FINDINGS: Fluoroscopic images from arteriography and angioplasty right upper extremity dialysis mayar tVinicius IMPRESSION: IMAGE(S) OBTAINED DURING PROCEDURE. COMMENT: Quality ID [id number]: Final reports for procedures using fluoroscopy that document radiation exp osure indices, or exposure time and number of fluorographic images (if radiation exposure indices are not available) Please consult full operative report of the attending physician for description of the procedure. TECHNICAL DOCUMENTATION: JOB ID: [id number] [email or web address]- All Rights Reserved Reading location - IP/workstation name: [email or web address]
== END 2018-11-11 10:55 | disposition home or self-care (01) ==
LOC: CCL 06:26
PROVIDERS: ATTEND Surgery
DX: T82.858A Stenosis of other vascular prosthetic devices, implants and grafts, initial encounter (principal); Y83.2 Surgical operation with anastomosis, bypass or graft as the cause of abnormal reaction of the patient, or of later complication, without mention of misadventure at the time of the procedure; I12.0 Hypertensive chronic kidney disease with stage 5 chronic kidney disease or end stage renal disease; N18.6 End stage renal disease; Z99.2 Dependence on renal dialysis; I25.10 Atherosclerotic heart disease of native coronary artery without angina pectoris; I25.2 Old myocardial infarction; E78.5 Hyperlipidemia, unspecified; Z95.810 Presence of automatic (implantable) cardiac defibrillator; Z79.899 Other long term (current) drug therapy
CPT/HCPCS: 36415; 85025; 80048; 36902; 76937; C2623; C1752; C1887; C1725; Q9967; C1769; J2250; J3010; J1644 ×2; J3490

== ENCOUNTER 2019-06-17 07:23 | Day surgery (SDC) | payer MEDICARE, MEDICAID ==
[2019-06-17 08:43] LABS: HEMATOCRIT 32.4 % (37.9-51.0); HEMOGLOBIN 11.4 g/dL (13.5-17.0); MEAN CORPUSCULAR HEMOGLOBIN 30.1 pg (27.0-33.4); MEAN CORPUSCULAR HGB CONC 35.3 g/dL (32.0-36.0); MEAN CORPUSCULAR VOLUME 85 fl (80-97); PLATELET COUNT 201 10^3/uL (150-450); RED CELL DISTRIBUTION WIDTH 14.7 % (11.5-14.0); WHITE BLOOD COUNT 7.3 10^3/uL (4.0-10.5)
[2019-06-17] MEDS ORDERED: LIDOCAINE 0.5% INJ-PF (5 MG/ML) 50 ML SDV ONE (08:44)
[2019-06-17] MEDS ORDERED: FENTANYL CITRATE INJ/PF 100 MCG/2 ML AMPUL ONE (08:45)
[2019-06-17] MEDS ORDERED: MIDAZOLAM 2 MG/2 ML INJ ONE (08:45)
[2019-06-17] MEDS ORDERED: HEPARIN SOD (PORCINE) 5,000 UNIT/ML 1 ML VIAL ONE (08:45)
[2019-06-17 08:54] LABS: ANION GAP 13 (5-19); BLOOD UREA NITROGEN 32 mg/dL (7-20); CALCIUM 10.1 mg/dL (8.4-10.2); CARBON DIOXIDE 30 mmol/L (22-30); CHLORIDE 100 mmol/L (98-107); GLUCOSE 93 mg/dL (75-110); POTASSIUM 4.8 mmol/L (3.6-5.0)
--- NOTE | 2019-06-17 10:30 | Discharge Summary ---
Discharge Summary (SDC) - Discharge Final Diagnosis: #1 malfunctioning AV fistula, right transposed basilic. 2. End-stage renal disease on hemodialysis. 3. Coronary artery disease. 4. Hypertension. 5. Osteoblastic lesion of left humerus. Date of Surgery: 06/17/19 Discharge Date: 06/17/19 Condition: Fair Treatment or Instructions: Discharge home [after recovery per ASU criteria]. Diet , [renal],as tolerated, when fully awake advance as tolerated. Activities within moderation encouraged. Follow up in my office by appointment in about [1 week]. Call for appointment. Leave wounds [covered], [keep clean and dry, until hemodialysis. Meds per med rec. 2 view x-rays of the right elbow to be done today. May shower [in 48 hrs], [try to keep operated area as dry as possible]. Referrals: ALTAGRACIA HERNANDEZ DO [Primary Care Provider] - Discharge Diet: Other (Comments) - Renal. Respiratory Treatments at Home: Deep Breathing/Coughing Discharge Activity: Activity As Tolerated Report the Following to Your Physician Immediately: Unusual Bleeding
--- NOTE | 2019-06-17 10:34 | RADIOLOGY REPORT (SQ) ---
EXAM DESCRIPTION: FISTULAGRAM W/PLASTY COMPLETED DATE/TIME: 06/17/2019 10:06 am REASON FOR STUDY: T82.858A T82.858A STENOSIS OF OTHER VASCULAR PROSTH DEV/GRFT, INIT COMPARISON: 11/11/2018 FLUOROSCOPY TIME: 4.8 minutes 292 images saved to PACS. TECHNIQUE: Intra-operative images acquired during surgical procedure to evaluate progress. NUMBER OF IMAGES: 292 images LIMITATIONS: None. FINDINGS: Images obtained during upper extremity fistulagram. Please see operative report for detai led description of procedure. IMPRESSION: IMAGE(S) OBTAINED DURING PROCEDURE. COMMENT: Quality ID 145: Final reports for procedures using fluoroscopy that document radiation exp osure indices, or exposure time and number of fluorographic images (if radiation exposure indices are not available) Please consult full operative report of the attending physician for description of the procedure. TECHNICAL DOCUMENTATION: JOB ID: [id number] [employer]- All Rights Reserved Reading location - IP/workstation name: [email or web address]
--- NOTE | 2019-06-17 10:37 | Operative Report ---
Operative Report DATE OF SURGERY: 06/17/19 PREOPERATIVE DIAGNOSIS: #1 malfunctioning AV fistula, right transposed basilic. 2. End-stage renal disease on hemodialysis. 3. Coronary artery disease. 4. Hypertension. POSTOPERATIVE DIAGNOSIS: #1 malfunctioning AV fistula, right transposed basilic. 2. End-stage renal disease on hemodialysis. 3. Coronary artery disease. 4. Hypertension. 5. Osteoblastic lesion of left humerus. OPERATION: 1. Ultrasound evaluation and real-time access into right basilic AV fistula. 2. Multiple angioplasties and fistula. Perianastomotic area. 3. Drug-eluting balloon deployed at. Anastomotic stenoses. 4. Angiogram and in terpretation. SURGEON: JABARI DODD CASE LINER: None. ANESTHESIA: Moderate Sedation TISSUE REMOVED OR ALTERED: Not applicable. COMPLICATIONS: None. ESTIMATED BLOOD LOSS: 5 mL. INTRAOPERATIVE FINDINGS: Of a relatively soft fistula initially suggestive of inflow stenosis. Confirmatory findings of stenosis, multiple over about 7 cm of the fistula and perianastomotic area. Up to 90% stenosis. Eliminated with angioplasty. Postprocedure evaluation shows appropriately improved strength of fistula. Incidental finding of an osteoblastic lesion which is actually palpable and medial to the distal humerus. This was discussed with the radiologist who recommended designated x-rays of the area possibly following up with a bone scan at a later date. This will be discussed with the patient. PROCEDURE: PROCEDURE: After verifying the procedure and having obtained informed consent, the patient's right arm and forearm were prepared with Chlorhexidine and draped out with sterile linen. Local anesthesia infiltrated. Percutaneous access into the fistula ,[retrograde], obtained about [50 cm] from the arteriovenous anastomosis using a micro puncture needle followed by micro puncture wire and then a micro puncture catheter. This was done on ultrasound guidance using real-time access into the vein. Ultrasound was also used to size the vein. Angiogram demonstrated the aforementioned findings. Angioplasty was elected. A 0.035 [place] wire was inserted, and over this, a 6 Vincentian short introducer was placed, this was followed by a [4] angioplasty balloon . Angioplasty was now done at the distal fistula and over perianastomotic segment. This was done very carefully and in the up to 11 amita sustained for 1 minute at a time. Angiogram demonstrated successful outcome. The balloon was now swapped over the wire for a drug-eluting 6 mm angioplasty balloon. Angioplasty was done in the culprit region. Inflating up to 10 atmospheres for 4 minutes. Additional dilatation done just cephalad to obtain maximum benefit of drug- eluting balloon, for 10 amita for 1 minute.]. Completion angiogram demonstrated [satisfactory result]. The instrumentation was now withdrawn over hand pressure for 10 minutes . Dressings applied, procedure concluded. Exposure time: 4.8 minutes Radiation: 6.66 mGy. Contrast: 25 mL of Isovue-M 300 low osmolality. DICTATING PHYSICIAN: JABARI JAMES M.D. cc: JABARI JAMES M.D. ([id number]) >>
[2019-06-17 12:12] VITALS: BP 146/77
--- NOTE | 2019-06-17 12:12 | PDOC H&P ---
General Chief Complaint: The patient presents because of difficulty obtaining dialysis because of low flow through the fistula. - Diagnosis (1) Dialysis AV fistula malfunction Is this a Current Diagnosis?: Yes (2) Hypertension Is this a Current Diagnosis?: Yes - Current Medications/Allergies Home Medications: Amlodipine Besylate [Norvasc 10 mg Tablet] 10 mg PO BID 11/11/18 Clopidogrel Bisulfate [Plavix] 75 mg PO DAILY 11/11/18 Doxazosin Mesylate [Cardura] 4 mg PO BID 11/11/18 Metoprolol Succinate 100 mg PO BID 11/11/18 Pantoprazole Sodium 40 mg PO DAILY 11/11/18 Simvastatin 20 mg PO DAILY 11/11/18 Aspirin 81 mg PO DAILY 06/17/19 Cinacalcet HCl 30 mg PO DAILY 06/17/19 Allergies/Adverse Reactions: No Known Allergies Allergy (Verified 06/17/19 07:30) Past Medical History Cardiac Medical History: Reports: Coronary Artery Disease, Myocardial Infarction - 2014,DEFIB x4, Hyperlipidema, Hypertension - on meds Pulmonary Medical History: Denies: Asthma, Bronchitis, Chronic Obstructive Pulmonary Disease (COPD), Pneumonia Neurological Medical History: Denies: Seizures Renal/ Medical History: Reports: End Stage Renal Disease Musculoskeltal Medical History: Denies: Arthritis Hematology: Denies: Anemia Past Surgical History Past Surgical History: Reports: Cardiac Catheterization, Coronary Artery Bypass Graft - x4 2013 Family History Family History: Reviewed & Not Pertinent Parental Family History Reviewed: No Children Family History Reviewed: No Sibling(s) Family History Reviewed.: No Social History Smoking Status: Never Smoker Frequency of Alcohol Use: None Hx Recreational Drug Use: No Hx Prescription Drug Abuse: No Physical Exam Vital Signs: Temp Pulse Resp BP Pulse Ox 97.6 F 65 16 136/76 H 99 06/17/19 10:40 06/17/19 11:20 06/17/19 11:20 06/17/19 11:10 06/17/19 11:20 Intake & Output 06/16/19 06/17/19 06/18/19 06:59 06:59 06:59 Intake Total 0 Balance 0 Weight 81.647 kg 81.647 kg Additional comments: Constitutional: Well-developed well-nourished gentleman. No apparent acute distress. Eyes: Mucous membranes pink and moist, pupils equal and reactive to light. Conjunctiva normal. Cornea normal. ENT: Hearing grossly normal. External pinna normal to inspection. Teeth intact. Tongue normal to inspection. .no murmurs. No carotid bruit. Respiratory: Normal respiratory effort. Psychiatric: Judgment, memory, insight seem normal. Mood is pleasant and appropriate. Extremities: Upper extremities show normal range of movement. Pulses present noted to the radial arteries. Capillary refill normal. No cyanosis noted. No muscle wasting noted. Right-sided transposed basilic fistula in place. Somewhat soft suggesting inflow issues. Neurovascular: No apparent tremors, gait normal. Sensation grossly intact. Hearing grossly normal. Vison grossly intact. Impression/Plan Plan: The patient is admitted with AV fistula malfunction. The plan is angiogram and possible angioplasty. The procedure, its risks, benefits, expected outcome and alternatives are familiar to the patient and he wishes to proceed.
--- NOTE | 2019-06-18 15:10 | RADIOLOGY REPORT (SQ) ---
EXAM DESCRIPTION: ELBOW RIGHT AP/LAT COMPLETED DATE/TIME: 06/17/2019 1:55 pm REASON FOR STUDY: GENARO MASS TO RIGHT ELBOW T82.858A STENOSIS OF OTHER VASCULAR PROSTH DEV/GRFT, IN IT COMPARISON: None. NUMBER OF VIEWS: Four views. TECHNIQUE: AP, lateral, and both oblique radiographic images acquired of the right elbow. LIMITATIONS: None. FINDINGS: MINERALIZATION: Normal. BONES: No acute fracture or dislocation. No worrisome bone lesions. JOINT: No effusion. SOFT TISSUES: Mass posterior to the medial epicondyle composed of multiple fairly uniform homogeneous calcified nodules. OTHER: No other significant finding. IMPRESSION: CALCIFIED MASS POSTERIOR TO THE MEDIAL EPICONDYLE. 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 MAY CONSIDER FOLLOW-UP WITH MRI. TECHNICAL DOCUMENTATION: JOB ID: [id number] [employer]- All Rights Reserved Reading location - IP/workstation name: [email or web address]
== END 2019-06-17 11:40 | disposition home or self-care (01) ==
LOC: CCL 07:23
PROVIDERS: ATTEND Surgery
DX: T82.858A Stenosis of other vascular prosthetic devices, implants and grafts, initial encounter (principal); Y83.2 Surgical operation with anastomosis, bypass or graft as the cause of abnormal reaction of the patient, or of later complication, without mention of misadventure at the time of the procedure; I12.0 Hypertensive chronic kidney disease with stage 5 chronic kidney disease or end stage renal disease; N18.6 End stage renal disease; Z99.2 Dependence on renal dialysis; I25.10 Atherosclerotic heart disease of native coronary artery without angina pectoris; Z79.899 Other long term (current) drug therapy; Z79.82 Long term (current) use of aspirin; I25.2 Old myocardial infarction; E78.5 Hyperlipidemia, unspecified; I48.91 Unspecified atrial fibrillation
CPT/HCPCS: 36415; 85027; 80048; 36902; 76937; 73070; C1725 ×2; C2623; C1752; C1887; Q9967; C1769; J1644 ×2; A9270 ×2; J3490; J2250; J3010